=== PATIENT | female | born 1965 | race Caucasian/White ===

== ENCOUNTER → 2020-07-31 12:35 | Outpatient (BNVA) | payer OTHER, SELFPAY | PROVIDERS: PCP Internal Medicine; Visit Provider Physician Assistant | DX: E66.9 Obesity, unspecified (principal); G47.10 Hypersomnia, unspecified | CPT/HCPCS: 99202 ==

== ENCOUNTER 2020-08-01 07:05 | Outpatient (REF) | payer OTHER, SELFPAY ==
[2020-08-01 07:35] LABS: MANUAL DIFF FLAG NO
[2020-08-01 08:00] LABS: Alanine Aminotransferase 20 U/L (0-31); Alkaline Phosphatase 45 U/L (39-117); Anion Gap 10 (12-20); Aspartate Amino Transferase 21 U/L (5-31); Blood Urea Nitrogen 18 mg/dL (9-16); C Reactive Protein 0.61 mg/dL (< or = 0.50); Calcium 8.8 mg/dL (8.4-10.2); Carbon Dioxide 31 mmol/L (22-29); Chloride 105 mmol/L (96-108); Cholesterol 239 mg/dL; Estimated Glomerular Filt Rate > 60; Glucose Fasting 93 mg/dL (60-99); HDL Cholesterol 66 mg/dL; Iron 101 mcg/dL (30-160); LDL Cholesterol Calculated 161 mg/dl; Percent Iron Saturation 39 % (15-50); Potassium 4.5 mmol/L (3.3-5.1); Sodium 141 mmol/L (135-145); Total Iron Binding Capacity 260 mcg/dL (228-428); Total Protein 6.7 g/dL (6.5-8.0); Triglycerides 61 mg/dL; Unsaturated Iron Binding 159 ug/dL
[2020-08-01 08:05] LABS: Basophils Percent Auto 0.5 % (0-2); Eosinophils Absolute Auto 0.1 X10*3/uL (0.0-0.4); Eosinophils Percent Auto 2.3 % (0-4); Hematocrit 43.7 % (37-47); Hemoglobin 14.3 g/dl (12.0-16.0); Imm Gran Abs Auto 0.02 X10*3/uL (0.00-0.03); Imm Gran Pct Auto 0.4 % (0.0-0.4); Lymphocytes Absolute Auto 2.1 X10*3/uL (1.2-4.9); Mean Corpuscular HGB Conc 32.7 g/dl (31.0-35.0); Mean Corpuscular Hemoglobin 31.8 pg (27.0-33.0); Mean Corpuscular Volume 97.1 fL (80-98); Mean Platelet Volume 10.4 fL (9.4-12.3); Monocytes Absolute Auto 0.4 X10*3/uL (0.1-1.2); Monocytes Percent Auto 7.8 % (2-11); Neutrophils Absolute Auto 2.9 X10*3/uL (2.0-8.3); Platelet Count 266 X10*3/uL (160-400); Red Cell Distribution Width 12.9 % (11.0-16.0); White Blood Count 5.6 X10*3/uL (4.8-10.8)
[2020-08-01 08:06] LABS: Estimated Average Glucose 111 mg/dL; Hemoglobin A1c % 5.5 %
[2020-08-01 08:21] LABS: Ferritin 147 ng/mL (10-250); TSH reflex Free T4 0.53 uIU/mL (0.32-4.0); Vitamin D 25-OH Total 39.8 ng/mL (>30)
[2020-08-03 04:16] LABS: Folate 18.9 ng/mL (> or = 4.0); Vitamin B12 605 pg/mL (200-900)
[2020-08-03 21:56] LABS: Insulin Level Total 3.6 uIU/mL
[2020-08-04 09:52] LABS: PTHI 51 pg/mL (14-64)
[2020-08-05 11:21] LABS: Vitamin B1 24 nmol/L (8-30)
[2020-08-05 12:11] LABS: Zinc 64 mcg/dL (60-130)
[2020-08-06 18:16] LABS: Vitamin A 40 mcg/dL (38-98)
== END 2020-08-01 07:06 | disposition home or self-care (01) ==
LOC: HO.LAB 07:05
PROVIDERS: PCP Internal Medicine; Visit Provider Physician Assistant
DX: E66.01 Morbid (severe) obesity due to excess calories (principal)
CPT/HCPCS: 36415; 80053; 80061; 82306; 82607; 82728; 82746; 83036; 83525; 83540; 83970; 84425; 84443; 84590; 84630; 85025; 86140

== ENCOUNTER → 2020-08-25 13:46 | Outpatient (REF) | payer OTHER, SELFPAY | LOC: HO.SL 13:46 | PROVIDERS: PCP Internal Medicine; Visit Provider Physician Assistant | DX: G47.19 Other hypersomnia (principal) | CPT/HCPCS: 95806 ==

== ENCOUNTER → 2020-09-03 15:24 | Outpatient (BNVA) | payer OTHER, SELFPAY | PROVIDERS: PCP Internal Medicine; Referring Provider Internal Medicine; Visit Provider Physician Assistant | DX: E66.9 Obesity, unspecified (principal); G47.10 Hypersomnia, unspecified; R06.83 Snoring; Z68.37 Body mass index [BMI] 37.0-37.9, adult; Z90.710 Acquired absence of both cervix and uterus | CPT/HCPCS: 99212 ==

== ENCOUNTER → 2020-09-23 12:46 | Outpatient (BNVA) | payer OTHER, SELFPAY | PROVIDERS: PCP Internal Medicine; Referring Provider Internal Medicine; Visit Provider Dietitian, Registered | DX: E66.9 Obesity, unspecified (principal); Z68.37 Body mass index [BMI] 37.0-37.9, adult | CPT/HCPCS: 97802 ==

== ENCOUNTER → 2020-09-24 08:29 | Outpatient (BNVA) | payer OTHER, SELFPAY | PROVIDERS: PCP Internal Medicine; Visit Provider Surgery ==

== ENCOUNTER 2020-10-09 08:06 | Outpatient (REF) | payer OTHER, SELFPAY ==
--- NOTE | ~2020-10-09 | XR_ITS ---
EXAMINATION: XR CHEST CLINICAL INFORMATION: Obesity COMPARISON: None TECHNIQUE: 2 views of the chest were obtained. FINDINGS: No significant abnormality is noted involving the heart, lungs, mediastinum, bony thorax or soft tissues. Hardware in place for cervical spine surgery. XR/XR chest 2V IMPRESSION: No acute disease.
[2020-10-10 13:22] LABS: H Pylori Breath Test NOT DETECTED (NOT DETECTED)
== END 2020-10-09 08:07 | disposition home or self-care (01) ==
LOC: HO.XRAY 08:06
PROVIDERS: Physician Assistant; PCP Internal Medicine; Visit Provider Surgery
DX: E66.9 Obesity, unspecified (principal); Z68.37 Body mass index [BMI] 37.0-37.9, adult; G47.33 Obstructive sleep apnea (adult) (pediatric); Z79.899 Other long term (current) drug therapy
CPT/HCPCS: 71046; 83013; 99211

== ENCOUNTER 2020-10-12 07:10 | Outpatient (REF) | payer OTHER, SELFPAY ==
--- NOTE | ~2020-10-12 | FL_ITS ---
EXAMINATION: XR GI SERIES CLINICAL INFORMATION: Obesity. COMPARISON: None TECHNIQUE: Air contrast upper GI examination. FINDINGS: There is normal elevation of the soft palate while saying candy. There is normal apposition of the focal cords while saying E. Patient drank thin and thick barium and swallowed half-inch diameter barium tablet without difficulty. There is no evidence of nasopharyngeal reflux or tracheal aspiration. No cricopharyngeal hypertrophy. No Zenker's diverticulum. There is normal esophageal motility without evidence of persistent stricture or erosion. No significant hiatal hernia was identified. No gastroesophageal reflux was elicited including with water siphon test. There is normal distensibility of the stomach without evidence of ulceration or abnormal mass. There was no delay in gastric emptying. The duodenal bulb and sweep appeared unremarkable. FLUOROSCOPY TIME: 2.2 minutes. DOSE AREA PRODUCT: 22.059 Gy-cm2 (sandhu-centimeter squared). FL/FL upper GI series IMPRESSION: Normal air contrast upper GI examination.
--- NOTE | ~2020-10-12 | US_ITS ---
EXAMINATION: US COMPLETE ABDOMEN WITH LIVER ELASTOGRAPHY CLINICAL INFORMATION: Obesity COMPARISON: None. TECHNIQUE: Real-time imaging of the abdominal viscera. Noninvasive ultrasound liver fibrosis assessment is performed using Bayron ElastPQ point quantification shear wave elastography (pSWE) with a C5-2 MHz transducer. Multiple elastography samples are obtained. FINDINGS: PANCREAS: Normal. ABDOMINAL AORTA: The proximal, middle, and distal aortic segments are normal in caliber. INFERIOR VENA CAVA: Visualized portions are normal. LIVER: Liver echotexture is slightly increased. The liver is normal in size and contour. No focal lesion or intrahepatic biliary duct dilatation. The right lobe measures 14 cm in length. The left lobe measures 10 cm in length. Portal flow is normal. Hepatopedal. Shear wave liver elastography median stiffness is 1.7 m/s (reference: normal median stiffness is 1.3 m/s or less). IQR/median stiffness to assess sampling precision is 0.17 (reference: good quality data set is IQR/median stiffness of 0.15 or less). GALLBLADDER: There are gallstones in the gallbladder. The gallbladder is normal in size. The gallbladder wall is normal. COMMON BILE DUCT: Normal in caliber measuring 0.3 cm in diameter. RIGHT KIDNEY: Normal. No hydronephrosis. No renal calculi or focal parenchymal lesions. The kidney measures 10 cm in maximum dimension. LEFT KIDNEY: Normal. No hydronephrosis. No renal calculi or focal parenchymal lesions. The kidney measures 10 cm in maximum dimension. SPLEEN: Normal. The spleen measures 10 cm in maximum dimension. FREE FLUID: None. US/US abdomen comp w elastography IMPRESSION: 1. Impression: Slightly echogenic liver. Gallstones. 2. Liver elastography: Slightly limited due to sampling error. Does not rule out compensated advanced chronic liver disease. REFERENCE: Society of Radiologists in Ultrasound Liver Stiffness Thresholds (2020): LIVER STIFFNESS THRESHOLDS: *Liver Stiffness equal or less than 1.3 m/s: High probability of being normal. *Liver Stiffness less than 1.7 m/s: In the absence of other known clinical signs, rules out compensated advanced chronic liver disease. *Liver Stiffness 1.7-2.1 m/s: Suggestive of compensated advanced chronic liver disease but need further test for confirmation. *Liver Stiffness over 2.1 m/s: Rules in compensated advanced chronic liver disease. *Liver Stiffness over 2.4 m/s: Suggestive of clinically significant portal hypertension. QUALITY OF DATA SET: *IQR/Median value equal or less than 0.15 implies a quality data set. *IQR/Median value over 0.15 implies a poor quality data set. SIGNIFICANT CHANGE FROM PRIOR EXAM: Significant change if liver stiffness measurement is 10% or greater from prior exam. OTHER CONSIDERATIONS: The stage of liver fibrosis may be overestimated in the setting of acute hepatitis, liver inflammation, elevated liver function tests, hepatic vascular congestion, obstructive cholestasis, non-fasting state, and infiltrative diseases such as amyloidosis and lymphoma. In some patients with NAFLD, the liver stiffness thresholds for compensated advanced chronic liver disease may be lower. In causes other than viral hepatitis and NAFLD, liver stiffness thresholds are not well established.
--- NOTE | 2020-10-12 07:17 | ECG_ITS ---
Test Reason : E66.9 Blood Pressure : / mmHG Vent. Rate : 052 BPM Atrial Rate : 052 BPM P-R Int : 166 ms QRS Dur : 084 ms QT Int : 454 ms P-R-T Axes : 049 064 039 degrees QTc Int : 422 ms Sinus bradycardia Otherwise normal ECG No previous ECGs available Referred By: Estephania Hensley Electronically Signed By:MELISSA DUMONT
== END 2020-10-12 07:11 | disposition home or self-care (01) ==
LOC: HO.US 07:10
PROVIDERS: PCP Internal Medicine; Visit Provider Surgery
DX: Z01.818 Encounter for other preprocedural examination (principal); E66.9 Obesity, unspecified; K21.9 Gastro-esophageal reflux disease without esophagitis; R00.1 Bradycardia, unspecified; R06.02 Shortness of breath; G47.33 Obstructive sleep apnea (adult) (pediatric); Z68.37 Body mass index [BMI] 37.0-37.9, adult
CPT/HCPCS: 74240; 76705; 76981; 93005

== ENCOUNTER → 2020-11-11 08:02 | Outpatient (BNVA) | payer OTHER, SELFPAY | PROVIDERS: PCP Internal Medicine; Visit Provider Surgery ==

== ENCOUNTER → 2020-11-24 12:11 | Day surgery (SDC) | payer OTHER, SELFPAY ==
[2020-11-12 14:40] LABS: MANUAL DIFF FLAG NO
[2020-11-12 14:46] LABS: Basophils Percent Auto 0.3 % (0-2); Eosinophils Absolute Auto 0.1 X10*3/uL (0.0-0.4); Eosinophils Percent Auto 0.8 % (0-4); Hematocrit 41.4 % (37-47); Hemoglobin 13.6 g/dl (12.0-16.0); Imm Gran Abs Auto 0.03 X10*3/uL (0.00-0.03); Imm Gran Pct Auto 0.4 % (0.0-0.4); Lymphocytes Absolute Auto 2.4 X10*3/uL (1.2-4.9); Lymphocytes Percent Auto 30.5 % (20-40); Mean Corpuscular HGB Conc 32.9 g/dl (31.0-35.0); Mean Corpuscular Hemoglobin 31.9 pg (27.0-33.0); Mean Corpuscular Volume 97.2 fL (80-98); Mean Platelet Volume 10.3 fL (9.4-12.3); Monocytes Absolute Auto 0.6 X10*3/uL (0.1-1.2); Monocytes Percent Auto 7.1 % (2-11); Neutrophils Absolute Auto 4.8 X10*3/uL (2.0-8.3); Neutrophils Percent Auto 60.9 % (45-73); Platelet Count 294 X10*3/uL (160-400); Red Blood Count 4.26 X10*6/uL (4.20-5.50); Red Cell Distribution Width 12.4 % (11.0-16.0); White Blood Count 7.9 X10*3/uL (4.8-10.8)
[2020-11-12 14:51] LABS: Prothrombin Time 11.1 SEC (9.9-13.0)
[2020-11-12 14:53] LABS: Partial Thromboplastin Time 35.3 SEC (24.1-38.0)
[2020-11-12 15:09] LABS: Alanine Aminotransferase 17 U/L (0-31); Albumin Level 4.3 g/dL (3.5-5.0); Alkaline Phosphatase 45 U/L (39-117); Anion Gap 12 (12-20); Aspartate Amino Transferase 21 U/L (5-31); Bilirubin Total 0.8 mg/dL (0.0-1.0); Blood Urea Nitrogen 18 mg/dL (9-16); Calcium 9.5 mg/dL (8.4-10.2); Carbon Dioxide 28 mmol/L (22-29); Chloride 106 mmol/L (96-108); Estimated Glomerular Filt Rate > 60; Glucose Random 98 mg/dL (60-115); Potassium 4.9 mmol/L (3.3-5.1); Sodium 141 mmol/L (135-145); Total Protein 6.9 g/dL (6.5-8.0)
--- NOTE | 2020-11-23 10:20 | P.CONAN_ITS ---
Documented by User: Kenyetta Thomasney 11/23/20 10:21 HPI - Anesthesia Eval Consult details Narrative: 55yo F for Cholecystectomy Laparoscopic PMFSH Active Problems Active Problems: All Active Problems (Updated 11/11/20 @ 15:18 by Dwayne Angelo MD) BMI over 35 (Acute) Cholelithiasis (Acute) GERD (gastroesophageal reflux disease) (Acute) Depression (Acute) Genital herpes (Acute) Sleep apnea with use of continuous positive airway pressure (CPAP) (Acute) Obesity, Class II, BMI 35-39.9 (Acute) BMI 37.0-37.9, adult (Acute) SADIA (obstructive sleep apnea) (Acute) MDD (major depressive disorder), recurrent episode, moderate (Acute) Snoring (Acute) Hypersomnolence (Acute) Osteoarthritis (Acute) Past Medical History Medical History BMI 37.0-37.9, adult Depression Genital herpes GERD (gastroesophageal reflux disease) Hypersomnolence Obesity, Class II, BMI 35-39.9 SADIA (obstructive sleep apnea) Osteoarthritis Sleep apnea with use of continuous positive airway pressure (CPAP) Snoring Family History Family History Mother No problems noted. Father Heart disease Hearing loss Parkinson disease Sister No problems noted. Sister No problems noted. Sister No problems noted. Brother No problems noted. Brother No problems noted. Brother Heart disease Arthritis Surgical History Surgical History History of bunionectomy History of partial hysterectomy History of surgery on arm Hx of appendectomy Hx of breast surgery Hx of spinal surgery Social History Social History Alcohol intake: current Alcohol intake frequency: holidays/special occasions only Patient Tobacco Use Status: Never used Tobacco Use of substances other than those prescribed or required for medical reasons: No Are you DNR?: No Advance Directives: No Advance Directives Information Provided: Yes Meds Allergies Allergy/AdvReac Type Severity Reaction Status Date / Time Seasonal Allergies Allergy Severe Anaphylaxis Verified 11/11/20 15:07 clarithromycin [From Biaxin] Allergy nausea Verified 11/11/20 15:07 Home Medications Medication Instructions Recorded Confirmed Last Taken Type duloxetine 20 mg capsule,delayed 20 mg PO DAILY 07/31/20 11/11/20 Unknown History release multivitamin 1 tab PO DAILY 07/31/20 11/11/20 Unknown History valacyclovir 500 mg tablet 500 mg PO DAILY 07/31/20 11/11/20 Unknown History Exam Exam Date and Time: November 23, 2020 1020 Pertinent Lab Results Pertinent Lab Results: Laboratory Tests 11/12/20 11/12/20 11/12/20 14:30 14:30 14:30 WBC 7.9 RBC 4.26 Hgb 13.6 Hct 41.4 MCV 97.2 MCH 31.9 MCHC 32.9 RDW 12.4 Plt Count 294 MPV 10.3 Immature Gran % (Auto) 0.4 Neut % (Auto) 60.9 Lymph % (Auto) 30.5 [place] % (Auto) 7.1 Eos % (Auto) 0.8 Baso % (Auto) 0.3 Lymph # (Auto) 2.4 [place] # (Auto) 0.6 Eos # (Auto) 0.1 Baso # (Auto) 0.0 Abs Immat Gran (auto) 0.03 Absolute Neuts (auto) 4.8 Absolute Nucleated RBC 0.000 Nucleated RBC % (auto) 0.0 PT 11.1 INR 1.0 APTT 35.3 Sodium 141 Potassium 4.9 Chloride 106 Carbon Dioxide 28 Anion Gap 12 BUN 18 H Creatinine 0.87 Estim Creat Clear Calc TNP Estimated GFR > 60 Random Glucose 98 Calcium 9.5 D Total Bilirubin 0.8 AST 21 ALT 17 Alkaline Phosphatase 45 Total Protein 6.9 Albumin 4.3 Blood Type Antibody Screen 11/12/20 14:30 WBC RBC Hgb Hct MCV MCH MCHC RDW Plt Count MPV Immature Gran % (Auto) Neut % (Auto) Lymph % (Auto) [place] % (Auto) Eos % (Auto) Baso % (Auto) Lymph # (Auto) [place] # (Auto) Eos # (Auto) Baso # (Auto) Abs Immat Gran (auto) Absolute Neuts (auto) Absolute Nucleated RBC Nucleated RBC % (auto) PT INR APTT Sodium Potassium Chloride Carbon Dioxide Anion Gap BUN Creatinine Estim Creat Clear Calc Estimated GFR Random Glucose Calcium Total Bilirubin AST ALT Alkaline Phosphatase Total Protein Albumin Blood Type A Positive Antibody Screen NEGATIVE Narrative Narrative: EKG 09/2020 Vent. Rate : 052 BPM Atrial Rate : 052 BPM P-R Int : 166 ms QRS Dur : 084 ms QT Int : 454 ms P-R-T Axes : 049 064 039 degrees QTc Int : 422 ms Sinus bradycardia Otherwise normal ECG No previous ECGs available Assessment and Plan Assessment Anesthesia Assessment: Chart Reviewed Documented by User: Silvio Perla MD 11/24/20 14:40 [facility] Past Medical History Medical History BMI 37.0-37.9, adult Depression Genital herpes GERD (gastroesophageal reflux disease) Hypersomnolence Obesity, Class II, BMI 35-39.9 SADIA (obstructive sleep apnea) Osteoarthritis Sleep apnea with use of continuous positive airway pressure (CPAP) Snoring Family History Family History Mother No problems noted. Father Heart disease Hearing loss Parkinson disease Sister No problems noted. Sister No problems noted. Sister No problems noted. Brother No problems noted. Brother No problems noted. Brother Heart disease Arthritis Surgical History Surgical History History of bunionectomy History of partial hysterectomy History of surgery on arm Hx of appendectomy Hx of breast surgery Hx of spinal surgery Social History Social History Alcohol intake: current Alcohol intake frequency: holidays/special occasions only Patient Tobacco Use Status: Never used Tobacco Use of substances other than those prescribed or required for medical reasons: No Are you DNR?: No Advance Directives: No Advance Directives Information Provided: Yes Meds Allergies Allergy/AdvReac Type Severity Reaction Status Date / Time Seasonal Allergies Allergy Severe Anaphylaxis Verified 11/11/20 15:07 clarithromycin [From Biaxin] Allergy nausea Verified 11/11/20 15:07 Home Medications Medication Instructions Recorded Confirmed Last Taken Type duloxetine 20 mg capsule,delayed 20 mg PO DAILY 07/31/20 11/11/20 Unknown History release multivitamin 1 tab PO DAILY 07/31/20 11/11/20 Unknown History valacyclovir 500 mg tablet 500 mg PO DAILY 07/31/20 11/11/20 Unknown History Assessment and Plan Assessment Anesthesia Assessment: Anesthesia Plan Discussed and Chart Reviewed Final Anesthetic Review NPO: Yes ASA Class: II Final Preanesthetic Review: No Changes in Pt Med Stat, Meds/Allgs Chart Reviewed, Consent Obtained/Reviewed and Anes Risks/Benef Reviewed Patient Risk: Intermediate Procedure Risk: Low Anesthetic Plan Anesthetic Plan: GA Disposition: Standard PACU
--- NOTE | 2020-11-23 19:16 | MHC.SHP ---
Pre-Procedural Eval Section A Date of Service: 11/23/20 The patient is an INPATIENT: No The History & Physical has been completed within 30 days and I have reviewed it.: Yes Section B Chief Complaint: Cholecystitis Details of Present Illness: Cholecystitis Relevant Family History (Specify if Yes): No Relevant Social History: None Present Medications: see Short Stay Collaborative assessment Medical History: No relevant PMH History of Previous Operations: No relevant previous surgery Allergies: Allergies Allergy/AdvReac Type Severity Reaction Status Date / Time Seasonal Allergies Allergy Severe Anaphylaxis Verified 11/11/20 15:07 clarithromycin [From Biaxin] Allergy nausea Verified 11/11/20 15:07 Review of Systems Sugical H&P ROS: Negative: Constitution, Cardiovascular, Respiratory, Neurological, Psychiatric, Hem-Onc, Allergic/Immunologic, Gastrointestinal, Genitourinary, Musculoskeletal, Integumentary, Endocrine and Eyes/Ears/Nose/Throat Exam Surgical H&P Exam: Normal: HEENT, Normal: Heart, Normal: Lungs, Normal: Extremities, Normal: Abdomen, Normal: Skin and Normal: Neurological Plan Diagnosis/Plan: Unchanged (Symptomatic cholelithiasis. Patient is need for cholecystectomy) I have reviewed the history and physical and performed a pertinent physical examination on my patient. No changes have occurred unless specified.
[2020-11-24] VITALS (14 sets, daily range): BP systolic 115–140; BP diastolic 55–82; PULSE 66–85; RESP 14–20; TEMP 36.3–36.7; O2SAT 93–100; BMI 34.7
[2020-11-24 12:46] LABS: COVID-19 Test Negative (Negative); IDNOW Serial# 9DD0AD1C
[2020-11-24] MEDS: Lactated Ringers 1,000 ML 100 ML IVCONT (12:47)
--- NOTE | 2020-11-24 14:48 | PM.OP ---
Brief Operative Note Date of Service: 11/24/20 Pre-op diagnosis: Symptomatic cholelithiasis, obesity and comorbidities (see below) Post-op diagnosis: same Procedure: PROCEDURE DATE: 11/24/2020 PREOPERATIVE DIAGNOSIS: Symptomatic cholelithiasis, morbid obesity with a body mass index of 37.9kg/sq. meters and comorbidities including sleep apnea, GERD, DJD, liver steatosis, liver fibrosis, acne POSTOPERATIVE DIAGNOSIS: Same as above. PROCEDURE: Laparoscopic cholecystectomy Surgeon: Benji Angelo M.D., Ph.D. Java Developer Consultant: Judy Darby PA-C Anesthesia: General endotracheal anesthesia Estimated blood loss: Minimal FINDINGS AND PROCEDURE: OPERATIVE INDICATIONS: The patient is a 55 year old female known to me who was initially seen in my office for evaluation for refractory morbid obesity. During the preoperative workup, the patient was found to have cholelithiasis which appears to be symptomatic. I recommended cholecystectomy. Risks and complications of the surgery were discussed with the patient in advance, particularly the postoperative bleeding, infection, DVT or PE, bile leak, major bile duct injury that may require additional surgical intervention, cardiac, pulmonary or renal complications among others. The patient understood the risks and was in agreement with the plan. PROCEDURE: After informed consent was obtained by the patient, the patient was transferred to the Operating Room and was placed in the supine position. The patient was given preoperative antibiotics and after successful induction of general anesthesia, pneumatic compression devices were placed. The patient was then prepped and draped in the usual sterile manner and abdominal access was established with the Darrian technique. The abdomen was insufflated with C02 to a pressure of 15 mmHg. A 5 mm Versi-step port was placed, slightly to the right and superior from the umbilicus. The 5 mm camera was introduced. We inspected the area where the port had been placed and there was no injury. The patient was then placed initially in a steep reverse Trendelenburg position and three additional ports were placed, specifically a 12 mm Versi-step port just to the right of the midline below the xiphoid process and two 5 mm Versi-step ports at the right upper quadrant and right flank. At that point the patient was placed in a steep reverse Trendelenburg position tilted to the left side. The gallbladder was retracted cephalad and laterally. There were adhesions between the omentum and the gallbladder wall that were taken down. The peritoneal attachments of the gallbladder at the triangle of Calot posteriorly and anteriorly were taken down. The cystic duct and artery were both seen. They were completely dissected free, skeletonized all the way to the infundibulum of the gallbladder . In a similar fashion we also cleaned the liver bed just behind the cystic artery to make sure there was no additional structures in this area. Once we confirmed that both structures were entering into the gallbladder and there were no other structures in the area, they were both clipped with two clips proximally, one distally and were cut in- between. We then using the electrocautery we slowly took down the gallbladder from the liver bed. Small areas of bleeding from the liver parenchyma were controlled with the cautery. After the gallbladder was completely detached from the liver bed, it was placed in an EndoCatch bag and was removed without difficulty from the xiphoid port. We then inspected the clips at the cystic duct and artery and were both in place. There was no active bleeding from the liver bed. I thoroughly suctioned the right upper quadrant and we removed all fluid until clear. At that point the patient was placed in supine position, I deflated the abdomen and we removed all ports under direct vision and no bleeding was noted from any of the port sites. The fascia of the 12 mm port was closed using a #1 Polysorb suture. 60cc 0.25% Marcaine and 10% Dexamethasone plain were used to infiltrate the fascial closure as well as all skin incisions. The wounds were irrigated with saline mixed with antibiotic solution and then the skin was closed with 4-0 Maxon subcuticular sutures antibiotic-coated. Steri-strips and OpSites were used to cover all incisions. The patient extubated and was transferred in stable condition to the Recovery Room for further care. I was present and performed all steps of the procedure. Constantino Darby was the first coat sander. There were no residents to assist with this case. Benji Angelo M.D., Ph.D., F.A.C.S. Surgeon: Dwayne Angelo MD Anesthesia: GETA, local and other (TAP block) Was an Java Developer Consultant used for this Procedure?: No Java Developer Consultant: Judy Darby Estimated blood loss (mL): 5 Urine output (mL): 0 (No [place] to record) Pathology: other (Gallbladder) Condition: stable Disposition: PACU
[2020-11-24] MEDS: HYDROmorphone HCl 0.5 MG/0.5 ML SYRINGE 0.25 MG IVPUSH ×4 (16:53→17:44)
[2020-11-24] MEDS: oxyCODONE HCl Immed Release 5 MG TABLET PO (16:53)
== END ==
PROVIDERS: PCP Internal Medicine; Visit Provider Surgery
PROC: 0FT44ZZ Resection of Gallbladder, Percutaneous Endoscopic Approach (ICD-10-PCS; CPT 47562; principal; 2020-11-24 15:30)
DX: K80.10 Calculus of gallbladder with chronic cholecystitis without obstruction (principal); K82.8 Other specified diseases of gallbladder; K74.00 Hepatic fibrosis, unspecified; K21.9 Gastro-esophageal reflux disease without esophagitis; K76.0 Fatty (change of) liver, not elsewhere classified; G47.33 Obstructive sleep apnea (adult) (pediatric); E66.01 Morbid (severe) obesity due to excess calories; Z68.37 Body mass index [BMI] 37.0-37.9, adult; Z79.899 Other long term (current) drug therapy; Z88.1 Allergy status to other antibiotic agents
CPT/HCPCS: 47562; 36415; 80053; 85025; 85610; 85730; 86850; 86900; 86901; 87635; 88304; J0131; J0690; J1100; J1170; J2250; J2405; J3010

== ENCOUNTER → 2020-12-25 07:14 | Outpatient (BNVA) | payer OTHER, SELFPAY | PROVIDERS: PCP Internal Medicine; Visit Provider Surgery ==

== ENCOUNTER → 2021-01-05 15:52 | Outpatient (BNVA) | payer OTHER, SELFPAY | PROVIDERS: PCP Internal Medicine; Visit Provider Surgery | DX: Z01.818 Encounter for other preprocedural examination (principal); E66.9 Obesity, unspecified; K21.9 Gastro-esophageal reflux disease without esophagitis; G47.33 Obstructive sleep apnea (adult) (pediatric); R11.0 Nausea; Z68.35 Body mass index [BMI] 35.0-35.9, adult; Z88.1 Allergy status to other antibiotic agents; Z91.09 Other allergy status, other than to drugs and biological substances; Z99.89 Dependence on other enabling machines and devices; Z79.899 Other long term (current) drug therapy | CPT/HCPCS: 99212 ==

== ENCOUNTER 2021-01-07 07:34 | Inpatient (IN) | payer OTHER, SELFPAY ==
[2021-01-06 06:54] LABS: MANUAL DIFF FLAG NO
[2021-01-06 06:59] LABS: Basophils Percent Auto 0.3 % (0-2); Eosinophils Absolute Auto 0.2 X10*3/uL (0.0-0.4); Eosinophils Percent Auto 3.6 % (0-4); Hematocrit 42.8 % (37-47); Hemoglobin 14.1 g/dl (12.0-16.0); Imm Gran Abs Auto 0.01 X10*3/uL (0.00-0.03); Imm Gran Pct Auto 0.2 % (0.0-0.4); Lymphocytes Absolute Auto 2.4 X10*3/uL (1.2-4.9); Lymphocytes Percent Auto 40.8 % (20-40); Mean Corpuscular HGB Conc 32.9 g/dl (31.0-35.0); Mean Corpuscular Volume 97.1 fL (80-98); Mean Platelet Volume 10.3 fL (9.4-12.3); Monocytes Absolute Auto 0.5 X10*3/uL (0.1-1.2); Monocytes Percent Auto 8.1 % (2-11); Neutrophils Absolute Auto 2.7 X10*3/uL (2.0-8.3); Platelet Count 292 X10*3/uL (160-400); Red Blood Count 4.41 X10*6/uL (4.20-5.50); Red Cell Distribution Width 12.9 % (11.0-16.0); White Blood Count 5.8 X10*3/uL (4.8-10.8)
[2021-01-06 07:15] LABS: Alanine Aminotransferase 20 U/L (0-31); Albumin Level 4.3 g/dL (3.5-5.0); Alkaline Phosphatase 40 U/L (39-117); Anion Gap 10 (12-20); Aspartate Amino Transferase 22 U/L (5-31); Bilirubin Total 1.3 mg/dL (0.0-1.0); Blood Urea Nitrogen 17 mg/dL (9-16); C Reactive Protein 0.35 mg/dL (< or = 0.50); Calcium 9.7 mg/dL (8.4-10.2); Carbon Dioxide 31 mmol/L (22-29); Chloride 106 mmol/L (96-108); Cholesterol 248 mg/dL; Estimated Glomerular Filt Rate > 60; Glucose Random 86 mg/dL (60-115); HDL Cholesterol 71 mg/dL; LDL Cholesterol Calculated 152 mg/dl; Sodium 142 mmol/L (135-145); Triglycerides 128 mg/dL
[2021-01-06 07:16] LABS: INTERNATIONAL NORM RATIO 0.9 (0.9-1.1); Prothrombin Time 10.7 SEC (9.9-13.0)
[2021-01-06 07:19] LABS: Partial Thromboplastin Time 31.2 SEC (24.1-38.0)
[2021-01-06 07:38] LABS: TSH reflex Free T4 1.29 uIU/mL (0.32-4.0)
[2021-01-06 07:48] LABS: Estimated Average Glucose 105 mg/dL; Hemoglobin A1c % 5.3 %
--- NOTE | 2021-01-06 08:43 | HO.ANESPROP2 ---
Documented by User: Kenyetta Gonzalez NP 01/06/21 08:44 HPI - Anesthesia Eval Consult details Narrative: 55yo F for Gastrectomy Sleeve,EGD,possible diaphragmatic hernia,possible ventral hernia,possible open PMFSH Active Problems Active Problems: All Active Problems (Updated 01/05/21 @ 16:24 by Dwayne Angelo MD) Obesity (Acute) Diarrhea (Acute) BMI over 35 (Acute) Cholelithiasis (Acute) GERD (gastroesophageal reflux disease) (Acute) Depression (Acute) Genital herpes (Acute) Sleep apnea with use of continuous positive airway pressure (CPAP) (Acute) Obesity, Class II, BMI 35-39.9 (Acute) BMI 37.0-37.9, adult (Acute) SADIA (obstructive sleep apnea) (Acute) MDD (major depressive disorder), recurrent episode, moderate (Acute) Snoring (Acute) Hypersomnolence (Acute) Osteoarthritis (Acute) Past Medical History Medical History BMI 37.0-37.9, adult Cholecystectomy planned Depression Genital herpes GERD (gastroesophageal reflux disease) Hypersomnolence Obesity, Class II, BMI 35-39.9 SADIA (obstructive sleep apnea) Osteoarthritis Sleep apnea with use of continuous positive airway pressure (CPAP) Snoring Family History Family History Mother No problems noted. Father Heart disease Hearing loss Parkinson disease Sister No problems noted. Sister No problems noted. Sister No problems noted. Brother No problems noted. Brother No problems noted. Brother Heart disease Arthritis Surgical History Surgical History History of bunionectomy History of partial hysterectomy History of surgery on arm Hx of appendectomy Hx of breast surgery Hx of spinal surgery Social History Social History Alcohol intake: current Alcohol intake frequency: holidays/special occasions only Patient Tobacco Use Status: Former Tobacco user Tobacco use type: Cigarette Use of substances other than those prescribed or required for medical reasons: No Are you DNR?: No Advance Directives: No Advance Directives Information Provided: No Recently lost weight without trying: No Nutrition Risks: No Nutritional Risk Patient : No Meds Allergies Allergy/AdvReac Type Severity Reaction Status Date / Time Seasonal Allergies Allergy Severe Anaphylaxis Verified 01/05/21 16:31 clarithromycin [From Biaxin] Allergy nausea Verified 01/05/21 16:31 Home Medications Medication Instructions Recorded Confirmed Last Taken Type duloxetine 20 mg capsule,delayed 20 mg PO DAILY 07/31/20 01/05/21 Unknown History release multivitamin 1 tab PO DAILY 07/31/20 01/05/21 Unknown History valacyclovir 500 mg tablet 500 mg PO DAILY 07/31/20 01/05/21 Unknown History Exam Exam Date and Time: January 06, [id number] Pertinent Lab Results Pertinent Lab Results: Laboratory Tests 01/06/21 01/06/21 01/06/21 06:10 06:10 06:10 WBC 5.8 RBC 4.41 Hgb 14.1 Hct 42.8 MCV 97.1 MCH 32.0 MCHC 32.9 RDW 12.9 Plt Count 292 MPV 10.3 Immature Gran % (Auto) 0.2 Neut % (Auto) 47.0 Lymph % (Auto) 40.8 H [place] % (Auto) 8.1 Eos % (Auto) 3.6 Baso % (Auto) 0.3 Lymph # (Auto) 2.4 [place] # (Auto) 0.5 Eos # (Auto) 0.2 Baso # (Auto) 0.0 Abs Immat Gran (auto) 0.01 Absolute Neuts (auto) 2.7 Absolute Nucleated RBC 0.000 Nucleated RBC % (auto) 0.0 PT 10.7 INR 0.9 APTT 31.2 Sodium 142 Potassium 5.0 Chloride 106 Carbon Dioxide 31 H Anion Gap 10 L BUN 17 H Creatinine 0.96 Estim Creat Clear Calc TNP Estimated GFR > 60 Random Glucose 86 Estimat Average Glucose Hemoglobin A1c % Calcium 9.7 Total Bilirubin 1.3 H AST 22 ALT 20 Alkaline Phosphatase 40 C-Reactive Protein 0.35 Total Protein 7.0 Albumin 4.3 Triglycerides 128 Cholesterol 248 LDL Cholesterol, Calc 152 HDL Cholesterol 71 TSH 1.29 01/06/21 06:10 WBC RBC Hgb Hct MCV MCH MCHC RDW Plt Count MPV Immature Gran % (Auto) Neut % (Auto) Lymph % (Auto) [place] % (Auto) Eos % (Auto) Baso % (Auto) Lymph # (Auto) [place] # (Auto) Eos # (Auto) Baso # (Auto) Abs Immat Gran (auto) Absolute Neuts (auto) Absolute Nucleated RBC Nucleated RBC % (auto) PT INR APTT Sodium Potassium Chloride Carbon Dioxide Anion Gap BUN Creatinine Estim Creat Clear Calc Estimated GFR Random Glucose Estimat Average Glucose 105 Hemoglobin A1c % 5.3 Calcium Total Bilirubin AST ALT Alkaline Phosphatase C-Reactive Protein Total Protein Albumin Triglycerides Cholesterol LDL Cholesterol, Calc HDL Cholesterol TSH Narrative Narrative: EKG 09/2020 Vent. Rate : 052 BPM ? ? Atrial Rate : 052 BPM ?? P-R Int : 166 ms? QRS Dur : 084 ms ? ? QT Int : 454 ms ? ? ? P-R-T Axes : 049 064 039 degrees ?? QTc Int : 422 ms ? Sinus bradycardia Otherwise normal ECG No previous ECGs available Assessment and Plan Assessment Anesthesia Assessment: Chart Reviewed Documented by User: Sofiya Cazares MD 01/07/21 09:24 [facility] Past Medical History Medical History BMI 37.0-37.9, adult Cholecystectomy planned Depression Genital herpes GERD (gastroesophageal reflux disease) Hypersomnolence Obesity, Class II, BMI 35-39.9 SADIA (obstructive sleep apnea) Osteoarthritis Sleep apnea with use of continuous positive airway pressure (CPAP) Snoring Family History Family History Mother No problems noted. Father Heart disease Hearing loss Parkinson disease Sister No problems noted. Sister No problems noted. Sister No problems noted. Brother No problems noted. Brother No problems noted. Brother Heart disease Arthritis Surgical History Surgical History History of bunionectomy History of partial hysterectomy History of surgery on arm Hx of appendectomy Hx of breast surgery Hx of spinal surgery History of Problems with Anesthesia: No Social History Social History Alcohol intake: current Alcohol intake frequency: holidays/special occasions only Patient Tobacco Use Status: Former Tobacco user Tobacco use type: Cigarette Use of substances other than those prescribed or required for medical reasons: No Are you DNR?: No Advance Directives: No Advance Directives Information Provided: No Recently lost weight without trying: No Nutrition Risks: No Nutritional Risk Patient : No Meds Allergies Allergy/AdvReac Type Severity Reaction Status Date / Time Seasonal Allergies Allergy Severe Anaphylaxis Verified 01/05/21 16:31 clarithromycin [From Biaxin] Allergy nausea Verified 01/05/21 16:31 Home Medications Medication Instructions Recorded Confirmed Last Taken Type duloxetine 20 mg capsule,delayed 20 mg PO DAILY 07/31/20 01/05/21 Unknown History release multivitamin 1 tab PO DAILY 07/31/20 01/05/21 Unknown History valacyclovir 500 mg tablet 500 mg PO DAILY 07/31/20 01/05/21 Unknown History Exam Airway Mallampati Class: II TM Dist: >3cm Neck ROM: Full Loose/Missing/Broken Teeth: No Heart: RRR Lungs: CTA Assessment and Plan Final Anesthetic Review History of Problems with Anesthesia: No NPO: Yes ASA Class: III Final Preanesthetic Review: Meds/Allgs Chart Reviewed, Consent Obtained/Reviewed and Anes Risks/Benef Reviewed Patient Risk: Low Procedure Risk: Intermediate Anesthetic Plan Anesthetic Plan: GA Disposition: Standard PACU
--- NOTE | 2021-01-06 22:27 | MHC.SHP ---
Pre-Procedural Eval Section A Date of Service: 01/06/21 The patient is an INPATIENT: Yes The History & Physical has been completed within 30 days and I have reviewed it.: No Section B Chief Complaint: obesity Relevant Family History (Specify if Yes): No Relevant Social History: None Present Medications: see Short Stay Collaborative assessment Medical History: No relevant PMH History of Previous Operations: No relevant previous surgery Allergies: Allergies Allergy/AdvReac Type Severity Reaction Status Date / Time Seasonal Allergies Allergy Severe Anaphylaxis Verified 01/05/21 16:31 clarithromycin [From Biaxin] Allergy nausea Verified 01/05/21 16:31 Review of Systems Sugical H&P ROS: Negative: Constitution, Cardiovascular, Respiratory, Neurological, Psychiatric, Hem-Onc, Allergic/Immunologic, Gastrointestinal, Genitourinary, Musculoskeletal, Integumentary, Endocrine and Eyes/Ears/Nose/Throat Exam Surgical H&P Exam: Normal: HEENT, Normal: Heart, Normal: Lungs, Normal: Extremities, Normal: Abdomen, Normal: Skin and Normal: Neurological Plan Diagnosis/Plan: Unchanged I have reviewed the history and physical and performed a pertinent physical examination on my patient. No changes have occurred unless specified.
[2021-01-07] VITALS (11 sets, daily range): BP systolic 102–159; BP diastolic 60–79; PULSE 50–85; RESP 12–18; TEMP 35.9–36.8; O2SAT 98–100; BMI 34.5
[2021-01-07 08:35] LABS: COVID-19 Test Negative (Negative)
[2021-01-07] MEDS: Lactated Ringers 1,000 ML 999 ML IV (08:45)
[2021-01-07] MEDS: Lactated Ringers 1,000 ML 100 ML IVCONT (08:45)
[2021-01-07] MEDS: ceFAZolin Sodium/Dextrose,Iso 2 GM/50 ML PIGGYBACK IV ×2 (10:40→16:32)
--- NOTE | 2021-01-07 12:48 | PM.OP ---
Brief Operative Note Date of Service: 01/07/21 Pre-op diagnosis: Severe obesity with comorbidities (see below) Post-op diagnosis: same Procedure: INITIAL PATIENT BMI ON PRESENTATION AT OUR OFFICE: 37.9 kg/m2 LAST BMI BEFORE SURGERY: 35.3 kg/m2 COMORBIDITIES: sleep apnea on CPAP, GERD, Depression, genital herpes, DJD, acne, liver steatosis, liver fibrosis The patient participated in an intensive weekly lifestyle ?intervention and exercise program during which the patient ?has lost between the initial office visit and the last preoperative visit 16.8 lbs, or 7.61% of initial actual body weight. The patient met the BMI-criteria for bariatric surgery based on the BMI on initial presentation. The patient should not be penalized for achieving such weight loss because ?it is not sustainable long-term without surgical intervention and it was achieved in preparation for bariatric surgery ?under my direction and based on my published research ([email or web address]) ?that a 10% preoperative weight loss improves long-term weight loss after surgery and reduces perioperative complications.? Insurance carriers such as [facility] have endorsed my recommendations ?and have included in their policies criteria to include a 10% preoperative weight loss requirement. PROCEDURE: Esophago-gastroscopy, laparoscopic repair of incarcerated diaphragmatic hernia, laparoscopic lysis of adhesions, laparoscopic sleeve gastrectomy and laparoscopic gastropexy INDICATIONS: This is a 50 year-old female who was electively scheduled for laparoscopic, possibly open sleeve gastrectomy. The risks and complications of the procedure were discussed with the patient in advance, particularly the possibility of ; pulmonary embolism; staple line leak; bleeding; GERD; cardiac, pulmonary, or renal complications; as well as long-term problems such as insufficient weight loss, vitamin deficiency, strictures, or ulcers. The patient understood all the risks, and was in agreement to proceed with surgery. DESCRIPTION OF PROCEDURE: After informed consent was obtained from the patient, the patient was given preoperative antibiotics, and was transferred to the operating room. After successful induction of general anesthesia, pneumatic compressive devices were placed on both lower extremities. An upper endoscopy was performed next. The oropharynx and esophagus appeared to be within normal limits. There was no diaphragmatic hernia present consistent with the findings of the preoperative upper GI. The stomach was entered. Then after all fluid and air were suctioned and the stomach was fully decompressed, the scope was withdrawn and secured in the mid esophagus. The patient was then prepped and draped in the usual sterile manner, and abdominal access was established at the right upper quadrant with the Darrian technique. A 12 mm blunt port was inserted, and the abdomen was insufflated with CO2 to a pressure of 15 mmHg. Under direct visualization, additional ports were placed, specifically two 5 mm Versi-step ports to the left upper quadrant, and a 5 mm Versi-Step port to the right upper quadrant. 1% lidocaine plain was used to infiltrate all port sites as well as all fascia defects. Following that, the patient was placed in a steep reverse Trendelenburg position. An additional 5 mm port was placed to the right flank for the Mediflex retractor that was used to retract the left lobe of the liver. The gastro-esophageal fat pad was opened with the ultrasonic device (Thunderbeat, Olympus) and the anterior esophagus and hiatus were exposed. The angle of His was opened with the ultrasonic device the fundus of the stomach from any diaphragmatic and splenic attachments. I then opened the gastrocolic ligament between the transverse colon and the greater curvature of the stomach with the ultrasonic device to enter the lesser sac and facilitate the ligation of the short gastric vessels. I started at a mid-point along the greater curvature and using the Thunderbeat, all short gastric vessels were divided all the way to the angle of His until the left martin was completely dissected at its entirety. I then divided the gastro-colic ligament distally to a distance of about 3-4 cm proximal to the esophagus. The stomach was then divided transversely with one Endo WILMER-45 purple and four WILMER-60 articulating orange loads using the AEON stapler and loads. Every effort was made that the gastric sleeve had a tubular shape and an even caliber throughout. Once the sleeve resection was completed, the staple line of the gastric sleeve was reinforced with Hemoclips. The resected stomach was retrieved without difficulty from the Darrian port. A gastropexy was then performed in order to prevent postoperative GERD and partial gastric volvulus. Several interrupted 2.0 Surgidac sutures were placed between the sleeve's staple line and the previously divided greater omentum and gastro-colic ligament using the Endo-Stitch device. ?An upper endoscopy was performed. There was no narrowing at the GE junction. The scope was easily advanced all the way to the pylorus which was clearly visualized. There was no narrowing anywhere and the sleeve's caliber was even throughout. The sleeve's staple line was inspected and there was no evidence of ischemia, bleeding or dehiscence. At that point the gastroscope was withdrawn from the patient?s mouth while we were decompressing the bowel and the stomach from any remaining air. I looked into the lesser sac to see how the sleeve was situating and it was situating well. There was no bleeding from the staple line, spleen, or short gastric vessels. The Mediflex retractor was removed, and the undersurface of the liver was inspected and there was no bleeding. The patient was placed in supine position. I closed the fascial defect of the 12 mm port site with a figure of eight #1 Polysorb suture. Then 100 cc 0.25 % Marcaine plain with 10 mg of Dexamethasone were used to infiltrate the fascial closure as well as all skin incisions. At this point, the abdomen was deflated, all ports were removed under direct vision, and no bleeding was noted from any of the port sites. The skin incisions were irrigated with saline and were closed with 4-0 absorbable monofilament sutures. Steri-Strips and OpSites were used to cover all incisions. The patient was extubated and was transferred in stable condition to the recovery room for further care. I was present and performed all damian parts of the procedure. Wilner was the assistant golf course superintendent. There were no residents to assist with this case. Benji Angelo MD, PhD, FACS Surgeon: Dwayne Angelo MD Anesthesia: GETA, local and other (TAP block) Was an Metal Fabricator Welder used for this Procedure?: Yes Metal Fabricator Welder: Judy Darby Estimated blood loss (mL): 10 IV fluids (mL): 2,500 Urine output (mL): 0 (No [place] to record) Pathology: other (Stomach) Condition: stable Disposition: PACU
--- NOTE | 2021-01-07 12:50 | P.DS_ITS ---
DS: Providers Provider Date of Service: 01/08/21 Date of admission: 01/07/21 07:34 Primary care physician: Italia Graham MD DS: Summary Hospital Course Hospital Course: ADMITTING DIAGNOSIS: morbid obesity, SADIA, GERD, depression, osteoarthritis, herpes simplex DISCHARGE DIAGNOSIS: same, s/p laparoscopic sleeve gastrectomy PAST SURGICAL HISTORY: lap [place], hysterectomy, appendectomy, breast and spine surgeries PROCEDURE: upper endoscopy, laparoscopic sleeve gastrectomy and repair of diaphragmatic hernia hernia DISCHARGE SUMMARY: History of Present Illness: The patient is a 55 year-old woman with a BMI of 37.7 kg/m2 and associated co- morbidities as described above. The patient had extensive work-up,lost 16.8 lbs preoperatively and was electively scheduled for laparoscopic, possible open sleeve gastrectomy and gastropexy. Risks and complications of the surgery were discussed with the patient in advance, particularly the possibility of , pulmonary embolism, anastomotic leak, bleeding, bowel injury, GERD, cardiac, renal or pulmonary complications. The patient understood all the risks and was in agreement with the surgical plan. Hospital Course: The patient underwent an uneventful laparoscopic sleeve gastrectomy with gastropexy on the day of admission. Postoperatively, the patient was transferred to the surgical floor. The patient received IV Acetaminophen and IV dilaudid for pain control. Patient was started on bariatric phase 1 diet POD #0. On postoperative day one, the patient was feeling well without nausea, vomiting, fevers, or tachycardia. The patient had some mild incisional pain and the abdomen was soft. On the morning of postoperative day one, the patient was continued on 1 ounce of water or ice every half hour. During the day, the patient did fairly well, having some incisional pain, but able to ambulate adequately and to tolerate liquids well. Since the patient is doing well, we decided that the patient was ready to be discharged. The patient was given instructions to follow-up with me next week and to call my office for any fever over 101, persistent abdominal pain, nausea, vomiting, GERD, symptoms of DVT such as calf tenderness, or leg swelling, or pulmonary embolism such as chest pain or shortness of breath. The patient was also instructed to drink 40-60 ounces of liquids per day using the 1-ounce cups. The patient had been given prescriptions for Tylenol for pain, Zofran prn for nausea, and pantoprazole and carafate previously. The patient was encouraged to ambulate and use the incentive spirometer. The patient was allowed to shower, but no baths, and encouraged to stay active at home. All of these instructions were given to the patient personally. All questions were answered and the patient understood all instructions, the instructions were also given to the patient in print. Time Spent with Patient Time attestation: Total time spent providing and/or coordinating discharge services: Discharge coordination time: Less than 30 minutes Quality: Stroke Does the patient have a stroke diagnosis?: No Physical Exam Vital Signs: Vital Signs: Last Vital Signs Temp 96.9 F 01/07/21 08:27 Pulse 71 01/07/21 08:27 Resp 16 01/07/21 08:27 BP 102/62 01/07/21 08:27 Pulse Ox 98 01/07/21 08:27 Body Mass Index 34.5 DS: Data Data Completed and Pending Pending studies at discharge: Pending at discharge 01/07/21 12:21 Surgical [PTH] Routine Labs on day of discharge: Laboratory Results - last 24 hr 01/07/21 08:10 COVID-19 (JOSE) Negative COVID-19 Clin Com See Note Discharge Plan Discharge Anticipated Discharge Date/Time: 01/08/21 10:46 Patient Disposition: Home, Self-Care Discharge Diagnosis: s/p sleeve gastrectomy Referrals: Italia Graham MD [Primary Care Provider] - 1 Week Discharge Medications: Continued duloxetine 20 mg capsule,delayed release(DR/EC) 20 mg PO DAILY RF: 0 valacyclovir 500 mg tablet 500 mg PO DAILY RF: 0 ondansetron HCl [Zofran] 4 mg tablet 4 mg PO Q12H PRN (Reason: nausea and vomiting) Qty: 20 RF: 0 pantoprazole 40 mg tablet,delayed release (DR/EC) 40 mg PO DAILY Qty: 30 RF: 2 sucralfate 100 mg/mL suspension 10 ml PO BID Qty: 400 RF: 2 Discontinued multivitamin Tablet 1 tab PO DAILY RF: 0 ondansetron HCl [Zofran] 4 mg tablet 4 mg PO Q12H Qty: 14 RF: 0 polyethylene glycol 3350 [Miralax] 17 gram powder in packet 17 g PO DAILY Qty: 14 RF: 0 Discharge Orders: Discharge Order (Routine); Ordered 01/08/21 Ordered By: Dwayne Angelo Diet: other Activity on Discharge: No heavy lifting Stand Alone Forms: Patient Portal Discharge page Care Plan Goals: weight loss Health Concerns: obesity Plan of Treatment: No tub baths, sex or returning to work until discussed at first post op appointment. No exercise, alcohol, tobacco or illegal drug use. Continue to use incentive spirometer hourly while awake. Walk in home for 5- 10 minutes every 2 hours during the first week. Continue phase 1 diet today and start phase 2 diet tomorrow morning. Follow all instructions in the bariatric handbook and call with any questions. The patient's medical history has been reviewed and they are considered low risk for post op DVT and therefore DVT prophylaxis is not considered necessary. Travel after surgery was reviewed. The patient has not disclosed any travel plans during the first 30 days after surgery and they have been advised that within the first 30 days after surgery any bus, plane, train or car travel over 2 hours in duration is contraindicated due to the possibility of developing blood clots from immobility. Any travel, needs to include periods of ambulation of 10 minutes in duration every 2 hours. The patient was instructed to discuss any plans for travel during this period with their bariatric surgeon. Assessment: too s/p sleeve gastrectomy Discharge Date/Time: 01/08/21 09:24
--- NOTE | 2021-01-07 12:53 | P.PNGS_ITS ---
Subjective Subjective Date of Service: 01/08/21 Interval history: Patient has mild incisional pain, but was able to ambulate and use the incentive spirometer. She is tolerating phase 1 bariatric diet Physical Exam Vital Signs: Vital Signs: Last Vital Signs Temp 96.9 F 01/07/21 08:27 Pulse 71 01/07/21 08:27 Resp 16 01/07/21 08:27 BP 102/62 01/07/21 08:27 Pulse Ox 98 01/07/21 08:27 Body Mass Index 34.5 GI: Inspection: Yes normal to inspection and Yes incision (clean, dry and intact) Extrem: Right lower extremity: normal to inspection (no calf tenderness) Left lower extremity: normal to inspection (no calf tenderness) Procedures Date of Service Date of Service: 01/08/21 Progress Note: A&P Assessment and plan (1) S/P laparoscopic sleeve gastrectomy: Status: Acute Assessment and Plan: s/p laparoscopic sleeve gastrectomy and gastropexy Doing well Check am labs. If OK, will discharge home? (2) Obesity: Status: Acute (3) BMI over 35: Status: Acute (4) Sleep apnea with use of continuous positive airway pressure (CPAP): Status: Acute (5) Osteoarthritis: Status: Acute (6) Genital herpes: Status: Acute (7) Depression: Status: Acute (8) GERD (gastroesophageal reflux disease): Status: Acute (9) Steatosis, liver: Status: Acute (10) Liver fibrosis: Status: Acute Fall Risk Details Current Medications: Current Medications Generic Name Dose Route Start Last Admin Trade Name Freq PRN Reason Stop Dose Admin Albuterol Sulfate 2.5 mg 01/07/21 09:24 Albuterol Sulfate (0.083%) 2.5 Mg/3 Ml Vial.Neb INHALE ONCE PRN Wheezing Famotidine 20 mg 01/07/21 12:47 Famotidine/Pf 20 Mg/2 Ml Vial IVPUSH BID RAFAEL Fentanyl 50 mcg 01/07/21 09:24 Fentanyl Citrate/Pf 100 Mcg/2 Ml Vial IVPUSH Q5M PRN Pain, Severe (Pain Scale 7-10) Protocol Fentanyl 25 mcg 01/07/21 09:24 Fentanyl Citrate/Pf 100 Mcg/2 Ml Vial IVPUSH Q5M PRN Pain, Moderate (Pain Scale 4-6 Protocol Hydromorphone HCl 0.5 mg 01/07/21 09:24 Hydromorphone Hcl 0.5 Mg/0.5 Ml Syringe IVPUSH Q5M PRN Pain, Severe (Pain Scale 7-10) Protocol Hydromorphone HCl 0.25 mg 01/07/21 09:24 Hydromorphone Hcl 0.5 Mg/0.5 Ml Syringe IVPUSH Q5M PRN Pain, Severe (Pain Scale 7-10) Protocol Lactated Ringer's 1,000 mls @ 100 mls/hr 01/07/21 07:45 01/07/21 08:45 Lr IVCONT 100 mls/hr .Q10H RAFAEL Administration Promethazine HCl 12.5 mg/ 50.5 mls @ 202 mls/hr 01/07/21 09:24 Sodium Chloride IV ONCE PRN Nausea and Vomiting Lactated Ringer's 1,000 mls @ 125 mls/hr 01/07/21 12:47 Lr IVCONT .Q8H RAFAEL Ondansetron HCl 4 mg 01/07/21 09:24 Ondansetron Hcl 4 Mg/2 Ml Vial IVPUSH ONCE PRN Nausea and Vomiting Oxycodone HCl 10 mg 01/07/21 09:24 Oxycodone Hcl Immed Release 5 Mg Tablet PO ONCE PRN Pain, Severe (Pain Scale 7-10) Oxycodone HCl 5 mg 01/07/21 09:24 Oxycodone Hcl Immed Release 5 Mg Tablet PO ONCE PRN Pain, Severe (Pain Scale 7-10) Time Spent With Patient Time: Total time spent is greater than 50% in coordination of care (as d ocumented) at patient's floor/unit and/or counseling patient: Time with patient: less than 15 minutes Quality Stroke Does the patient have a stroke diagnosis?: No VTE Prior VTE?: No VTE Risk Level:: Surgical - moderate VTE Device Contraindication: N/A - Device Ordered VTE Drug Contraindication: Treatment Not Indicated
[2021-01-07] MEDS: Famotidine/PF 20 MG/2 ML VIAL IVPUSH ×2 (13:09→21:23)
[2021-01-07 13:10] LABS: Hematocrit 39.3 % (37-47); Hemoglobin 13.2 g/dl (12.0-16.0)
[2021-01-07 13:26] LABS: Anion Gap 12 (12-20); Blood Urea Nitrogen 13 mg/dL (9-16); Calcium 8.8 mg/dL (8.4-10.2); Carbon Dioxide 27 mmol/L (22-29); Chloride 106 mmol/L (96-108); Creatinine Clr Calc Pharmacy 81.8; Estimated Glomerular Filt Rate > 60; Glucose Random 94 mg/dL (60-115); Potassium 4.8 mmol/L (3.3-5.1); Sodium 140 mmol/L (135-145)
[2021-01-07] MEDS: Lactated Ringers 1,000 ML 125 ML IVCONT ×2 (13:47→21:24)
[2021-01-07] MEDS: ondansetron HCL 4 MG/2 ML VIAL IVPUSH ×2 (14:03→22:34)
[2021-01-07] MEDS: 0.9 % Sodium Chloride Flush 3 ML SYRINGE IVFLUSH ×2 (15:02→21:23)
[2021-01-08] VITALS: BP 129/59; PULSE 48; RESP 16; TEMP 37.1; O2SAT 100
[2021-01-08 04:00] VITALS: BP 127/65; PULSE 54; RESP 16; TEMP 36.1; O2SAT 98
[2021-01-08] MEDS: Lactated Ringers 1,000 ML 125 ML IVCONT (05:35)
[2021-01-08] MEDS: ondansetron HCL 4 MG/2 ML VIAL IVPUSH (05:36)
[2021-01-08 05:42] LABS: MANUAL DIFF FLAG NO
[2021-01-08 05:44] LABS: Basophils Percent Auto 0.1 % (0-2); Hematocrit 38.3 % (37-47); Hemoglobin 12.8 g/dl (12.0-16.0); Imm Gran Abs Auto 0.02 X10*3/uL (0.00-0.03); Imm Gran Pct Auto 0.2 % (0.0-0.4); Lymphocytes Absolute Auto 1.3 X10*3/uL (1.2-4.9); Lymphocytes Percent Auto 13.4 % (20-40); Mean Corpuscular HGB Conc 33.4 g/dl (31.0-35.0); Mean Corpuscular Hemoglobin 32.1 pg (27.0-33.0); Mean Platelet Volume 10.3 fL (9.4-12.3); Monocytes Absolute Auto 0.6 X10*3/uL (0.1-1.2); Monocytes Percent Auto 6.1 % (2-11); Neutrophils Percent Auto 80.2 % (45-73); Platelet Count 238 X10*3/uL (160-400); Red Blood Count 3.99 X10*6/uL (4.20-5.50); Red Cell Distribution Width 12.5 % (11.0-16.0)
[2021-01-08 06:24] LABS: Anion Gap 14 (12-20); Blood Urea Nitrogen 12 mg/dL (9-16); Calcium 8.9 mg/dL (8.4-10.2); Carbon Dioxide 25 mmol/L (22-29); Chloride 105 mmol/L (96-108); Creatinine Clr Calc Pharmacy 84.8; Estimated Glomerular Filt Rate > 60; Glucose Random 124 mg/dL (60-115); Sodium 139 mmol/L (135-145)
[2021-01-08 08:00] VITALS: BP 146/63; PULSE 60; RESP 20; TEMP 35.8; O2SAT 100
[2021-01-08] MEDS: Famotidine/PF 20 MG/2 ML VIAL IVPUSH (08:40)
--- NOTE | 2021-01-08 09:45 | MHC.CM.PN ---
CM ATTEMPTED TO MEET W/PT HOWEVER PT HAD ALREADY DISCHARGED HOME, PT DISCHARGED HOME SELF-CARE W/FOLLOW-UP IN SURGEONS OFFICE, PT ARRANGED TRANSPORT.
[2021-01-08 10:31] LABS: Insulin Level Total 2.8 uIU/mL
--- NOTE | 2021-01-08 13:47 | HO.POSTANES ---
Post Anesthesia Evaluation Post Anesthesia Evaluation Vital Signs: Vital Signs Temp Pulse Resp BP Pulse Ox 01/08/21 08:00 96.5 F L 60 20 146/63 H 100 01/08/21 04:00 96.9 F 54 16 127/65 98 Anesthesia: General Endotracheal-GETA Mental Status: Awake Pain Control: Satisfactory Nausea/Vomiting: None Hydration: Adequate Anesthesia-Related Issues: No Anes. Related Issues
== END 2021-01-08 09:24 | disposition home or self-care (01) | DRG 403 ==
LOC: HO.SSSA 12:50 → HO.S3 14:10
PROVIDERS: Physician Assistant; Absent Provider Physician Assistant; Admitting Provider Surgery; PCP Internal Medicine; Visit Provider Surgery
PROC: 0DB64Z3 Excision of Stomach, Percutaneous Endoscopic Approach, Vertical (ICD-10-PCS; CPT 43845; principal; 2021-01-07 10:10)
DX: E66.01 Morbid (severe) obesity due to excess calories (principal); K74.00 Hepatic fibrosis, unspecified; A60.00 Herpesviral infection of urogenital system, unspecified; F32.9 Major depressive disorder, single episode, unspecified; K21.9 Gastro-esophageal reflux disease without esophagitis; M19.90 Unspecified osteoarthritis, unspecified site; G47.30 Sleep apnea, unspecified; L70.9 Acne, unspecified; K76.0 Fatty (change of) liver, not elsewhere classified; Z68.35 Body mass index [BMI] 35.0-35.9, adult; Z99.89 Dependence on other enabling machines and devices; Z79.899 Other long term (current) drug therapy
CPT/HCPCS: 36415; 80048; 80053; 80061; 83036; 83525; 84443; 85014; 85018; 85025; 85610; 85730; 86140; 86850; 86900; 86901; 87635; 88307; 88342; 99024; A4649; J0131; J0461; J0690; J1100; J1170; J2250; J2405; J3010

== ENCOUNTER → 2021-01-15 07:22 | Outpatient (BNVA) | payer OTHER, SELFPAY | PROVIDERS: PCP Internal Medicine; Visit Provider Surgery | DX: E66.9 Obesity, unspecified (principal); Z68.32 Body mass index [BMI] 32.0-32.9, adult; Z98.84 Bariatric surgery status | CPT/HCPCS: 99212 ==

== ENCOUNTER → 2021-02-15 08:01 | Outpatient (BNVA) | payer OTHER, SELFPAY | PROVIDERS: PCP Internal Medicine; Visit Provider Surgery | DX: E66.9 Obesity, unspecified (principal); Z68.30 Body mass index [BMI] 30.0-30.9, adult | CPT/HCPCS: 99212 ==

== ENCOUNTER → 2021-03-11 07:57 | Outpatient (BNVA) | payer OTHER, SELFPAY | PROVIDERS: PCP Internal Medicine; Visit Provider Physician Assistant Surgical | DX: E66.9 Obesity, unspecified (principal); Z68.30 Body mass index [BMI] 30.0-30.9, adult | CPT/HCPCS: 99212 ==

== ENCOUNTER → 2021-04-12 08:02 | Outpatient (BNVA) | payer OTHER, SELFPAY | PROVIDERS: PCP Internal Medicine; Visit Provider Physician Assistant Surgical ==

== ENCOUNTER → 2021-04-27 08:06 | Outpatient (BNVA) | payer OTHER, SELFPAY | PROVIDERS: PCP Internal Medicine; Visit Provider Dietitian, Registered | DX: E66.3 Overweight (principal); Z68.28 Body mass index [BMI] 28.0-28.9, adult | CPT/HCPCS: 97803 ==

== ENCOUNTER → 2021-05-10 08:00 | Outpatient (BNVA) | payer OTHER, SELFPAY | PROVIDERS: PCP Internal Medicine; Visit Provider Physician Assistant Surgical ==

== ENCOUNTER 2021-07-09 12:25 | Outpatient (REF) | payer OTHER, SELFPAY ==
[2021-07-09 14:04] LABS: MANUAL DIFF FLAG NO
[2021-07-09 14:40] LABS: Basophils Percent Auto 0.3 % (0-2); Eosinophils Absolute Auto 0.1 X10*3/uL (0.0-0.4); Eosinophils Percent Auto 1.1 % (0-4); Hematocrit 43.6 % (37.0-47.0); Hemoglobin 14.2 g/dl (12.0-16.0); Imm Gran Abs Auto 0.03 X10*3/uL (0.00-0.03); Imm Gran Pct Auto 0.4 % (0.0-0.4); Lymphocytes Absolute Auto 2.7 X10*3/uL (1.2-4.9); Lymphocytes Percent Auto 37.2 % (20-40); Mean Corpuscular HGB Conc 32.6 g/dl (31.0-35.0); Mean Corpuscular Hemoglobin 32.3 pg (27.0-33.0); Mean Corpuscular Volume 99.1 fL (80.0-98.0); Mean Platelet Volume 10.4 fL (9.4-12.3); Monocytes Absolute Auto 0.5 X10*3/uL (0.1-1.2); Monocytes Percent Auto 7.1 % (2-11); Neutrophils Absolute Auto 3.9 x10*3/uL (2.0-8.3); Neutrophils Percent Auto 53.9 % (45-73); Platelet Count 249 X10*3/uL (160-400); Red Cell Distribution Width 12.4 % (11.0-16.0); White Blood Count 7.2 X10*3/uL (4.8-10.8)
[2021-07-09 15:17] LABS: Anion Gap 12 (12-20); Blood Urea Nitrogen 32 mg/dL (9-16); Calcium 9.7 mg/dL (8.4-10.2); Carbon Dioxide 28 mmol/L (22-29); Chloride 106 mmol/L (96-108); Cholesterol 236 mg/dL; Estimated Glomerular Filt Rate > 60; Glucose Random 79 mg/dL (60-115); HDL Cholesterol 65 mg/dL; Iron 85 mcg/dL (30-160); LDL Cholesterol Calculated 155 mg/dl; Potassium 5.1 mmol/L (3.3-5.1); Sodium 141 mmol/L (135-145); Triglycerides 81 mg/dL
[2021-07-09 15:34] LABS: TSH reflex Free T4 0.46 uIU/mL (0.32-4.0); Vitamin D 25-OH Total 57.4 ng/mL (>30)
[2021-07-09 15:39] LABS: Folate 19.7 ng/mL (> or = 4.0); Vitamin B12 782 pg/mL (200-900)
[2021-07-09 15:42] LABS: Ferritin 175 ng/mL (10-250)
[2021-07-09 15:48] LABS: Percent Iron Saturation 31 % (15-50); Total Iron Binding Capacity 275 mcg/dL (228-428); Unsaturated Iron Binding 190 ug/dL
[2021-07-12 16:41] LABS: Calcium (PTHI) 9.9 mg/dL (8.6-10.4); PTHI 32 pg/mL (14-64)
[2021-07-14 00:07] LABS: Zinc 57 mcg/dL (60-130)
[2021-07-15 14:05] LABS: Vitamin B1 16 nmol/L (8-30)
[2021-07-16 10:26] LABS: Vitamin A 42 mcg/dL (38-98)
== END 2021-07-09 12:26 | disposition home or self-care (01) ==
LOC: HO.LAB 12:25
PROVIDERS: PCP Internal Medicine; Visit Provider Physician Assistant Surgical
DX: E66.3 Overweight (principal); Z68.26 Body mass index [BMI] 26.0-26.9, adult; Z71.3 Dietary counseling and surveillance
CPT/HCPCS: 36415; 80048; 80061; 82306; 82607; 82728; 82746; 83540; 83970; 84425; 84443; 84590; 84630; 85025; 86140; 99212

== ENCOUNTER 2022-01-15 07:01 | Outpatient (REF) | payer OTHER, SELFPAY ==
[2022-01-15 08:30] LABS: Alanine Aminotransferase 23 U/L (0-31); Albumin Level 4.2 g/dL (3.5-5.0); Alkaline Phosphatase 50 U/L (39-117); Anion Gap 14 (12-20); Aspartate Amino Transferase 21 U/L (5-31); Bilirubin Total 0.8 mg/dL (0.0-1.0); Blood Urea Nitrogen 19 mg/dL (9-16); C Reactive Protein 0.12 mg/dL (< or = 0.50); Calcium 9.3 mg/dL (8.4-10.2); Carbon Dioxide 27 mmol/L (22-29); Chloride 107 mmol/L (96-108); Cholesterol 230 mg/dL; Estimated Glomerular Filt Rate > 60; Glucose Random 81 mg/dL (60-115); HDL Cholesterol 76 mg/dL; Iron 109 mcg/dL (30-160); LDL Cholesterol Calculated 142 mg/dl; Percent Iron Saturation 38 % (15-50); Potassium 4.7 mmol/L (3.3-5.1); Sodium 143 mmol/L (135-145); Total Iron Binding Capacity 287 mcg/dL (228-428); Total Protein 6.9 g/dL (6.5-8.0); Triglycerides 62 mg/dL; Unsaturated Iron Binding 178 ug/dL
[2022-01-15 09:31] LABS: Ferritin 170 ng/mL (10-250); TSH reflex Free T4 0.83 uIU/mL (0.32-4.0); Vitamin D 25-OH Total 34.3 ng/mL (>30)
[2022-01-15 10:03] LABS: Folate > 20.0 ng/mL (> or = 4.0); Vitamin B12 520 pg/mL (200-900)
[2022-01-15 10:04] LABS: Insulin 5 uU/mL (2-29)
[2022-01-15 10:19] LABS: MANUAL DIFF FLAG NO
[2022-01-15 10:34] LABS: Basophils Percent Auto 0.5 % (0-2); Eosinophils Absolute Auto 0.1 X10*3/uL (0.0-0.4); Eosinophils Percent Auto 1.7 % (0-4); Hematocrit 42.4 % (37.0-47.0); Hemoglobin 14.2 g/dl (12.0-16.0); Imm Gran Abs Auto 0.02 X10*3/uL (0.00-0.03); Imm Gran Pct Auto 0.3 % (0.0-0.4); Lymphocytes Absolute Auto 2.6 X10*3/uL (1.2-4.9); Lymphocytes Percent Auto 44.4 % (20-40); Mean Corpuscular HGB Conc 33.5 g/dl (31.0-35.0); Mean Corpuscular Hemoglobin 32.4 pg (27.0-33.0); Mean Corpuscular Volume 96.8 fL (80.0-98.0); Mean Platelet Volume 9.7 fL (9.4-12.3); Monocytes Absolute Auto 0.5 X10*3/uL (0.1-1.2); Monocytes Percent Auto 8.3 % (2-11); Neutrophils Absolute Auto 2.6 x10*3/uL (2.0-8.3); Neutrophils Percent Auto 44.8 % (45-73); Platelet Count 252 X10*3/uL (160-400); Red Blood Count 4.38 X10*6/uL (4.20-5.50); Red Cell Distribution Width 12.4 % (11.0-16.0); White Blood Count 5.8 X10*3/uL (4.8-10.8)
[2022-01-15 10:44] LABS: Estimated Average Glucose 108 mg/dL; Hemoglobin A1c % 5.4 %
[2022-01-17 20:32] LABS: Calcium (PTHI) 9.1 mg/dL (8.6-10.4); PTHI 59 pg/mL (16-77)
[2022-01-20 01:27] LABS: Zinc 90 mcg/dL (60-130)
[2022-01-20 06:16] LABS: Vitamin B1 16 nmol/L (8-30)
[2022-01-20 09:36] LABS: Vitamin A 49 mcg/dL (38-98)
== END 2022-01-15 07:02 | disposition home or self-care (01) ==
LOC: HO.LAB 07:01
PROVIDERS: Visit Provider Physician Assistant Surgical
DX: Z98.84 Bariatric surgery status (principal)
CPT/HCPCS: 36415; 80053; 80061; 82306; 82607; 82728; 82746; 83036; 83525; 83540; 83970; 84425; 84443; 84590; 84630; 85025; 86140

== ENCOUNTER → 2022-01-25 12:30 | Outpatient (BNVA) | payer OTHER, SELFPAY | PROVIDERS: PCP Internal Medicine; Visit Provider Counselor Mental Health | DX: F43.20 Adjustment disorder, unspecified (principal); Z98.84 Bariatric surgery status | CPT/HCPCS: 90832 ==

== ENCOUNTER → 2022-02-04 10:43 | Outpatient (BNVA) | payer OTHER, SELFPAY | PROVIDERS: PCP Internal Medicine; Visit Provider Dietitian, Registered | DX: E66.9 Obesity, unspecified (principal); Z68.29 Body mass index [BMI] 29.0-29.9, adult | CPT/HCPCS: 97803 ==

== ENCOUNTER → 2022-02-15 13:21 | Outpatient (BNVA) | payer OTHER, SELFPAY | PROVIDERS: PCP Internal Medicine; Visit Provider Dietitian, Registered | DX: E66.3 Overweight (principal); Z68.37 Body mass index [BMI] 37.0-37.9, adult | CPT/HCPCS: 97803 ==

== ENCOUNTER → 2022-12-16 12:30 | Outpatient (BNVA) | payer OTHER, SELFPAY | PROVIDERS: PCP Internal Medicine; Visit Provider Dietitian, Registered | DX: E66.9 Obesity, unspecified (principal); Z68.29 Body mass index [BMI] 29.0-29.9, adult | CPT/HCPCS: 97803 ==

== ENCOUNTER → 2022-12-30 12:47 | Outpatient (BNVA) | payer OTHER, SELFPAY | PROVIDERS: PCP Internal Medicine; Visit Provider Dietitian, Registered | DX: E66.9 Obesity, unspecified (principal); Z98.84 Bariatric surgery status; Z71.3 Dietary counseling and surveillance | CPT/HCPCS: 97803 ==

== ENCOUNTER 2023-01-07 07:01 | Outpatient (REF) | payer OTHER, SELFPAY ==
[2023-01-07 07:17] LABS: MANUAL DIFF FLAG NO
[2023-01-07 07:39] LABS: Basophils Percent Auto 0.4 % (0-2); Eosinophils Absolute Auto 0.1 X10*3/uL (0.0-0.4); Eosinophils Percent Auto 1.9 % (0-4); Hematocrit 43.5 % (37.0-47.0); Hemoglobin 14.6 g/dl (12.0-16.0); Imm Gran Abs Auto 0.01 X10*3/uL (0.00-0.03); Imm Gran Pct Auto 0.2 % (0.0-0.4); Lymphocytes Percent Auto 36.8 % (20-40); Mean Corpuscular HGB Conc 33.6 g/dl (31.0-35.0); Mean Corpuscular Hemoglobin 32.3 pg (27.0-33.0); Mean Corpuscular Volume 96.2 fL (80.0-98.0); Mean Platelet Volume 9.7 fL (9.4-12.3); Monocytes Absolute Auto 0.5 X10*3/uL (0.1-1.2); Monocytes Percent Auto 9.4 % (2-11); Neutrophils Absolute Auto 2.7 x10*3/uL (2.0-8.3); Neutrophils Percent Auto 51.3 % (45-73); Platelet Count 235 X10*3/uL (160-400); Red Blood Count 4.52 X10*6/uL (4.20-5.50); Red Cell Distribution Width 11.7 % (11.0-16.0); White Blood Count 5.3 X10*3/uL (4.8-10.8)
[2023-01-07 07:54] LABS: Estimated Average Glucose 103 mg/dL; Hemoglobin A1c % 5.2 % (<6.0)
[2023-01-07 08:08] LABS: Anion Gap 8 (12-20); Blood Urea Nitrogen 16 mg/dL (9-16); C Reactive Protein < 0.10 mg/dL (< or = 0.50); Calcium 9.6 mg/dL (8.4-10.2); Carbon Dioxide 30 mmol/L (22-29); Chloride 108 mmol/L (96-108); Cholesterol 225 mg/dL (<200); Estimated Glomerular Filt Rate > 60; Glucose Random 86 mg/dL (60-115); HDL Cholesterol 77 mg/dL (>40); Iron 105 mcg/dL (30-160); LDL Cholesterol Calculated 137 mg/dL (<100); Percent Iron Saturation 43 % (15-50); Potassium 4.8 mmol/L (3.3-5.1); Sodium 141 mmol/L (135-145); Total Iron Binding Capacity 247 mcg/dL (228-428); Triglycerides 55 mg/dL (<150); Unsaturated Iron Binding 142 ug/dL
[2023-01-07 08:25] LABS: Ferritin 162 ng/mL (10-250); Insulin 5 uU/mL (2-29); TSH reflex Free T4 0.79 uIU/mL (0.32-4.0)
[2023-01-07 08:37] LABS: Folate 15.1 ng/mL (> or = 4.0); Vitamin B12 1021 pg/mL (200-900)
[2023-01-10 17:09] LABS: Calcium (PTHI) 9.4 mg/dL (8.6-10.4); PTHI 62 pg/mL (16-77)
[2023-01-11 06:10] LABS: Zinc 90 mcg/dL (60-130)
[2023-01-12 02:19] LABS: Vitamin A 48 mcg/dL (38-98)
[2023-01-13 07:38] LABS: Vitamin B1 17 nmol/L (8-30)
== END 2023-01-07 07:02 | disposition home or self-care (01) ==
LOC: HO.LAB 07:01
PROVIDERS: PCP Internal Medicine; Visit Provider Physician Assistant Surgical
DX: E66.9 Obesity, unspecified (principal); K74.00 Hepatic fibrosis, unspecified; Z98.84 Bariatric surgery status
CPT/HCPCS: 36415; 80048; 80061; 82306; 82607; 82728; 82746; 83036; 83525; 83540; 83970; 84425; 84443; 84590; 84630; 85025; 86140

== ENCOUNTER 2023-11-08 14:09 | Outpatient (AMB) | payer OTHER, SELFPAY ==
--- NOTE | 2023-11-08 14:07 | A.OFFVIS_ITS ---
VS Expanded 11/08/23 14:09 Height 5 ft 4 in Weight 176 lb BMI 30.2 Intake Visit Reasons: (TV) PO LSG 01/07/2021 Allergies Seasonal Allergies Allergy (Severe, Verified 07/09/21 12:58) Anaphylaxis clarithromycin [From Biaxin] Allergy (Verified 07/09/21 12:58) nausea Medication List - Last Reconciled 11/08/23 by LANCE Martin multivitamin 1 tab PO DAILY valacyclovir 500 mg PO DAILY vortioxetine (Trintellix) 10 mg PO DAILY HPI Comments Details: This?is a?58?yo female who is s/p LSG 01/07/2021. Weight at last visit on 12/30/2022 was 171 pounds; weight today is 176 pounds, representing a 5 pound weight gain with a BMI today of 30.2.? No complaints of nausea, emesis, abdominal pain or reflux, or constipation. Pt reports I'm really struggling . Does not feel much restriction, having cravings/hunger. I'm so busy I don't have time to plan anything. Caring for her elderly father. Likes [employer]g [employer]. Present meal plan includes: 2 eggs, onions and peppers and a little cheese lunch chicken salad with avocado dinner: pork chop and green beans Exercise routine includes: not much free time to work out but does have some exercise equipment at home [facility] Medical History BMI 37.0-37.9, adult Cholecystectomy planned Depression Genital herpes GERD (gastroesophageal reflux disease) Hypersomnolence Liver fibrosis Obesity, Class II, BMI 35-39.9 SADIA (obstructive sleep apnea) Osteoarthritis Sleep apnea with use of continuous positive airway pressure (CPAP) Snoring Steatosis, liver Surgical History History of bunionectomy History of partial hysterectomy History of surgery on arm Hx of appendectomy Hx of breast surgery Hx of spinal surgery Family History Mother No problems noted. Father Heart disease Hearing loss Parkinson disease Sister No problems noted. Sister No problems noted. Sister No problems noted. Brother Heart disease Brother No problems noted. Brother Heart disease Arthritis Social History Household Members: Significant Other Housing: House Do you presently have visiting nurse or other home services: No Alcohol intake: current Alcohol intake frequency: holidays/special occasions only Patient Tobacco Use Status: Never used Tobacco Tobacco use type: Cigarette Telehealth Telehealth Telehealth Platform: Telephone Location of provider rendering services: practice address Location of patient: address on file Patient Identification confirmed using: Name, : Yes Telehealth method: voice only Patient verbally consented to treatment: Yes Patient verbally consented to billing insurance company: Yes Patient informed of any privacy concerns related to visit: Yes Minutes spent on Phone/Video with Pt.: 16 Assessment & Plan Assessment & Plan (1) S/P laparoscopic sleeve gastrectomy: Code(s): Z98.84 - Bariatric surgery status Category: Surgical (2) Obesity: Code(s): E66.9 - Obesity, unspecified Category: Medical Plan Pt needs to go back to a plan with higher protein intake, encouraged her to restart Fairlife shakes or can make a protein coffee in the morning. Protein goal 70-75g per day, does not want a plan solely based on shakes and bars, tired of bars. Recommended 1 fairlife shake, 1 anguillan yogurt, 1 meal of 2-3oz protein, 1 additional meal with ~15g protein (like 2 eggs) Encouraged pt to restart exercise routine, even just 15-20 min per day to start, try to do daily. RTC 3 months, can recheck labs at that time. Gave pt my work cell # and encouraged her to reach out between appts with any questions or concerns. I spent a total of 30 minutes reviewing/updating records, examining the patient and counseling the patient on weight management as detailed above.
[2023-11-08 14:09] VITALS: BMI 30.2
== END 2023-11-08 14:33 | disposition home or self-care (01) ==
LOC: HO.HBS 14:09
PROVIDERS: PCP Internal Medicine; Visit Provider Physician Assistant Surgical
DX: E66.9 Obesity, unspecified (principal); Z68.30 Body mass index [BMI] 30.0-30.9, adult; Z90.3 Acquired absence of stomach [part of]; Z98.84 Bariatric surgery status
CPT/HCPCS: 99442

== ENCOUNTER → 2023-11-08 14:09 | Outpatient (BNVA) | payer OTHER, SELFPAY | PROVIDERS: PCP Internal Medicine; Visit Provider Physician Assistant Surgical ==

== ENCOUNTER 2024-02-19 10:12 | Outpatient (AMB) | payer OTHER, SELFPAY ==
--- NOTE | 2024-02-19 10:05 | A.OFFVIS_ITS ---
VS Expanded 02/19/24 10:11 Height 5 ft 4 in Weight 190 lb BMI 32.6 Intake Visit Reasons: TELEPHONE PO LSG 01/07/21 Allergies Seasonal Allergies Allergy (Severe, Verified 07/09/21 12:58) Anaphylaxis clarithromycin [From Biaxin] Allergy (Verified 07/09/21 12:58) nausea Medication List - Last Reconciled 02/19/24 by LANCE Martin multivitamin 1 tab PO DAILY valacyclovir 500 mg PO DAILY vortioxetine (Trintellix) 10 mg PO DAILY HPI Comments Details: This?is a?59?yo female who is s/p LSG 01/07/2021. Presents for 3 year post op visit. Weight at last visit on 11/08/2023 was 176 pounds with a BMI of 30.2, weight today is 190 pounds, representing a 14 pound weight gain with a BMI today of 32.6.? No complaints of nausea, emesis, abdominal pain or reflux, or constipation. I'm too busy. Eating all kinds of stuff. Trying weight watchers again, bought a Lumen. Present meal plan includes: Cheese stick with nuts and grapes Lunch- leftovers, pasta, tries to control portions has been having ice cream at last visit- 1 fairlife shake, 1 maltese yogurt, 1 meal of 2-3oz protein, 1 additional meal with ~15g protein (like 2 eggs) taking MVI Exercise routine includes: bought an exercise bike arriving this week [facility] Medical History BMI 37.0-37.9, adult Cholecystectomy planned Depression Genital herpes GERD (gastroesophageal reflux disease) Hypersomnolence Liver fibrosis Obesity, Class II, BMI 35-39.9 SADIA (obstructive sleep apnea) Osteoarthritis Sleep apnea with use of continuous positive airway pressure (CPAP) Snoring Steatosis, liver Surgical History History of bunionectomy History of partial hysterectomy History of surgery on arm Hx of appendectomy Hx of breast surgery Hx of spinal surgery Family History Mother No problems noted. Father Heart disease Hearing loss Parkinson disease Sister No problems noted. Sister No problems noted. Sister No problems noted. Brother Heart disease Brother No problems noted. Brother Heart disease Arthritis Social History Household Members: Significant Other Housing: House Do you presently have visiting nurse or other home services: No Alcohol intake: current Alcohol intake frequency: holidays/special occasions only Patient Tobacco Use Status: Never used Tobacco Tobacco use type: Cigarette Telehealth Telehealth Telehealth Platform: Telephone Location of provider rendering services: practice address Location of patient: address on file Patient Identification confirmed using: Name, : Yes Telehealth method: voice only Patient verbally consented to treatment: Yes Patient verbally consented to billing insurance company: Yes Patient informed of any privacy concerns related to visit: Yes Minutes spent on Phone/Video with Pt.: 18 Assessment & Plan Assessment & Plan (1) BMI 32.0-32.9,adult: Code(s): Z68.32 - Body mass index [BMI] 32.0-32.9, adult Category: Medical (2) S/P laparoscopic sleeve gastrectomy: Code(s): Z98.84 - Bariatric surgery status Category: Surgical Plan Discussed getting back to high protein meal plan, eating too many carbs and not on a schedule. Reiterated previous high protein meal plan, resuming exercise. Sent healthy foods list and portion sizes. Annual labs ordered. RTC 1 year, pt's insurance may not cover more frequent visits. Sent plan to pt via text and encouraged her to reach out weekly with updates. I spent a total of 30 minutes reviewing/updating records, examining the patient and counseling the patient on weight management as detailed above. Orders: Orders Insulin Today Z.84 - Bariatric surgery status C Reactive Protein Today Z98.84 - Bariatric surgery status Vitamin B1 Today Z98.84 - Bariatric surgery status Ferritin Today Z98.84 - Bariatric surgery status Hemoglobin A1c Today Z98.84 - Bariatric surgery status Complete Blood Count Auto Diff Today Z98.84 - Bariatric surgery status Lipid Panel Today Z.84 - Bariatric surgery status IRON PROFILE Today Z.84 - Bariatric surgery status Comprehensive Met. Panel Today Z.84 - Bariatric surgery status Vitamin B12 and Folate Today Z98.84 - Bariatric surgery status Zinc Today Z98.84 - Bariatric surgery status Vitamin A Today Z.84 - Bariatric surgery status TSH reflex Free T4 Today Z98.84 - Bariatric surgery status Vitamin D 25-OH Total Today Z98.84 - Bariatric surgery status
[2024-02-19 10:11] VITALS: BMI 32.6
== END 2024-02-19 10:32 | disposition home or self-care (01) ==
LOC: HO.HBS 10:12
PROVIDERS: PCP Internal Medicine; Visit Provider Physician Assistant Surgical
DX: E66.811 Obesity, class 1 (principal); Z68.32 Body mass index [BMI] 32.0-32.9, adult; Z90.3 Acquired absence of stomach [part of]; Z98.84 Bariatric surgery status
CPT/HCPCS: 99214

== ENCOUNTER → 2024-02-19 10:12 | Outpatient (BNVA) | payer OTHER, SELFPAY | PROVIDERS: PCP Internal Medicine; Visit Provider Physician Assistant Surgical ==

== ENCOUNTER 2024-08-05 12:10 | Outpatient (AMB) | payer OTHER, SELFPAY ==
--- NOTE | 2024-08-05 12:01 | MHC.OFFVISWM ---
Intake Visit Reasons: TELEPHONE PO LSG 01/07/21 Allergies Seasonal Allergies Allergy (Severe, Verified 07/09/21 12:58) Anaphylaxis clarithromycin [From Biaxin] Allergy (Verified 07/09/21 12:58) nausea Medication List - Last Reconciled 08/05/24 by LANCE Martin multivitamin 1 tab PO DAILY thiamine HCl (vitamin B1) 100 mg PO DAILY valacyclovir 500 mg PO DAILY vit C,U-Hd-ohrzh-lutein-zeaxan 250-90-40-1 mg (PreserVision AREDS-2) 1 tab PO BID vitamin A palmitate 10,000 units PO DAILY vortioxetine (Trintellix) 10 mg PO DAILY HPI Comments Details: This?is a?59?yo female who is s/p LSG 01/07/2021. Presents for 3.5 years post op visit. Weight at last visit on 02/19/2024 was 190 pounds with a BMI of 32.6, weight today is estimated to be about the same. No complaints of nausea, emesis, abdominal pain or reflux, or constipation. She has tried phentermine in the past, was not very effective. Present meal plan includes: Cheese stick with nuts and grapes Lunch- leftovers, pasta, tries to control portions has been having ice cream at last visit- 1 fairlife shake, 1 polish yogurt, 1 meal of 2-3oz protein, 1 additional meal with ~15g protein (like 2 eggs) taking MVI [facility] Medical History BMI 37.0-37.9, adult Cholecystectomy planned Depression Genital herpes GERD (gastroesophageal reflux disease) Hypersomnolence Liver fibrosis Obesity, Class II, BMI 35-39.9 SADIA (obstructive sleep apnea) Osteoarthritis Sleep apnea with use of continuous positive airway pressure (CPAP) Snoring Steatosis, liver Surgical History History of bunionectomy History of partial hysterectomy History of surgery on arm Hx of appendectomy Hx of breast surgery Hx of spinal surgery Family History Mother No problems noted. Father Heart disease Hearing loss Parkinson disease Sister No problems noted. Sister No problems noted. Sister No problems noted. Brother Heart disease Brother No problems noted. Brother Heart disease Arthritis Social History Household Members: Significant Other Housing: House Do you presently have visiting nurse or other home services: No Alcohol intake: current Alcohol intake frequency: holidays/special occasions only Patient Tobacco Use Status: Never used Tobacco Tobacco use type: Cigarette Telehealth Telehealth Telehealth Platform: Telephone Location of provider rendering services: practice address Location of patient: address on file Patient Identification confirmed using: Name, : Yes Telehealth method: voice only Patient verbally consented to treatment: Yes Patient verbally consented to billing insurance company: Yes Patient informed of any privacy concerns related to visit: Yes Minutes spent on Phone/Video with Pt.: 16 Assessment & Plan Assessment & Plan (1) S/P laparoscopic sleeve gastrectomy: Code(s): Z98.84 - Bariatric surgery status Category: Medical (2) Obesity: Code(s): E66.9 - Obesity, unspecified Category: Medical Plan Pt is interested in starting GLP1. Reviewed contraindications, discussed dosing. Discussed need for adequate protein intake while on GLP1s as well as frequent communication with our office. Pt will check in with me weekly and is aware that subsequent Rx will be dependent on frequent communication. Target protein 75-80g. Info for [employer]on texted to pt. She had labs done at [facility], will text me results. RTC 6-8 weeks. Medications: New Zepbound (tirzepatide (weight loss)) for 4 weeks 2.5 mg (0.5 mL) subcut QWEEK 2 mL 0RF NS
--- OUTSIDE RECORDS SUMMARY | 2024-08-05 14:35 | XMS_ITS | Clinical Summary ---
Author Organization [facility] [address] [facility] Address [address] [place] [address] Phone Care Team Providers Care Tile Presser Name Role Phone Vaishali Veloz Primary Care Provider [phone] Allergies Active Allergy Reactions Criticality Noted Date Comments Amoxicillin-Pot Clavulanate Nausea And Vomiting 04/03/2024 Clarithromycin Nausea Only,Dizziness 04/25/2017 No reaction documented Medications vortioxetine (Trintellix) 10 mg tablet Take 1 tablet (10 mg total) by mouth 1 (one) time each day. 02/02/2024 Active ergocalciferol (VITAMIN D-2) 1,250 mcg (50,000 unit) capsule Take 1 Capsule by mouth once a week. 08/09/2023 Active tretinoin (RETIN-A) 0.025 % cream APPLY ON AFFECTED AREA DAILY 06/14/2023 Active acetaminophen (TYLENOL) 500 mg tablet Take 1 tablet (500 mg total) by mouth every 6 (six) hours if needed. Active vitamin A 3,000 mcg (10,000 unit) capsule Take 1 capsule (10,000 Units total) by mouth 1 (one) time each day. Active thiamine 100 mg tablet Take 1 tablet (100 mg total) by mouth 1 (one) time each day. Active albuterol HFA (PROAIR HFA ; PROVENTIL HFA ; VENTOLIN HFA) 90 mcg/actuation inhaler TAKE 2 PUFFS (INHALATION) EVERY 6 HOURS (SHORTNESS OF BREATH OR WHEEZING) FOR 10 DAYS 05/16/2023 Active fluticasone propionate (FLONASE) 50 mcg/actuation nasal spray USE 2 SPRAYS IN NOSTRILS DAILY X1 WEEK THEN 1-2 SPRAYS DAILY. USE LOWEST POSSIBLE DOSE AFTER WEEK 1 02/08/2024 Active estradioL (ESTRACE) 1 mg tablet Take 1 tablet (1 mg total) by mouth 1 (one) time each day. 90 tablet 3 05/13/2024 Active valACYclovir (VALTREX) 500 mg tablet TAKE 1 TABLET BY MOUTH EVERY DAY 90 tablet 3 06/18/2024 Active Active Problems Problem Noted Date Diagnosed Date Moderate episode of recurrent major depressive d isorder 02/24/2021 History of sleeve gastrectomy 02/24/2021 HSV (herpes simplex virus) anogenital infection 03/06/2019 Multiple thyroid nodules 07/03/2018 Cervical spinal stenosis 06/26/2018 Overview (02/21/2024): S/p discectomy and anterior cervical fusion Interstitial cystitis 05/14/2017 Allergic rhinitis 04/25/2017 Leiomyoma of uterus 04/25/2017 Migraine 04/25/2017 Urinary incontinence 04/25/2017 Overview (02/21/2024): Mixed, urge and stress Vitamin D deficiency 04/25/2017 Insomnia 04/03/2017 Anxiety 03/30/2017 Prediabetes 03/30/2017 Restless leg syndrome 03/30/2017 Encounters Date Type Department Care Team Description 05/13/2024 2:30 PM EST Office Visit Obstetrics and Gynecology [address] [phone] [place], [place] Encounter for annual physical examination excluding gynecological examination in a patient older than 17 years (Primary Dx); Status post hysterectomy; Postmenopausal HRT (hormone replacement therapy) 05/10/2024 Telephone Family Medicine [facility] [address] [facility] [address] [place] [phone] Vaishali Veloz PA 05/07/2024 3:18 PM EST - 05/07/2024 11:59 PM EST [facility] [address] [place] [phone] Discharge Disposition: Home or Self Care 05/07/2024 3:18 PM EST - 05/07/2024 11:59 PM EST Hospital Encounter [facility] [place] [address] [place] [address] Discharge Disposition: Home or Self Care 05/07/2024 2:00 PM EST Office Visit Internal Medicine - [place] [address] [place] [id number] Vaishali Veloz PA Physical exam (Primary Dx); Recurrent sinusitis; Acute recurrent frontal sinusitis; Chronic neck and back pain; Acute neck pain; Tenderness over spine from Last 3 Months Immunizations Name Administration Dates Next Due Influenza Quadravalent, MDCK , 0.5ml, preservative free (Flucelvax) 6mo and older 02/15/2018 Moderna SARS-CoV-2 COVID-19, mRNA, LNP-S, preservative free 09/25/2020 Surgical History Surgery Date Site/Laterality Comments APPENDECTOMY 01/03/2001 PROCEDURE: HISTORICAL APPENDECTOMY PARTIAL HYSTERECTOMY 10/2012 PROCEDURE: NV SUPRACERVICAL ABDL HYSTER W/WO RMVL TUBE OVARY; COMMENT: supra-cervical for endometriosis OTHER SURGICAL HISTORY 1999 Right PROCEDURE: HISTORICAL ARM SURGERY; COMMENT: tendon and artery repair d/t trauma from dog BUNIONECTOMY 1995 Bilateral PROCEDURE: BUNION SURGERY, SIMPLE REMOVAL; COMMENT: L 1995, R 1979 OTHER SURGICAL HISTORY PROCEDURE: NV ARTHRD ANT INTERBODY MIN DSC CRV BELOW C2 GASTRIC BYPASS 12/2020 PROCEDURE: NV GASTRIC RSTCV W/BYP W/SM INT RCNSTJ LIMIT ABSRPJ BREAST BIOPSY 03/19/2020 Left PROCEDURE: BX BREAST; PERC NEEDLE CORE W/IMAG GUID; COMMENT: abcess BREAST SURGERY CHOLECYSTECTOMY Medical History Medical History Date Comments Restless leg syndrome DX:Restles s leg syndrome; COMMENT: ? early Parkinson's Anxiety 03/30/2017 DX:Anxiety Insomnia 04/03/2017 DX:Insomnia Major depression in partial remission (CMS/HCC) 03/30/2017 DX:Major depression in parti al remission (HCC) Obesity, morbid, BMI 40.0-49 .9 (CMS/HCC) 04/03/2017 DX:Obesity, morbid, BMI 40.0 -49.9 (HCC) Prediabetes 03/30/2017 DX:Prediabetes Vitamin D deficiency 04/25/2017 DX:Vitamin D deficiency Allergic rhinitis 04/25/2017 DX:Allergic rh initis Migraine 04/25/2017 DX:Migraine Urinary incontinence 04/25/2017 DX:Urinary incontinence; COMMENT: Mixed, urge and stress Leiomyoma of uterus 04/25/2017 DX:Leiomyoma of uterus S/P cervical spinal fusion 07/03/2018 DX:S/ P cervical spinal fusion Multiple thyroid nodules 07/03/2018 DX:Mult iple thyroid nodules SADIA (obstructive sleep apnea) DX :SADIA (obstructive sleep apnea); COMMENT: on CPAP Depression DX:Depression Osteoarthritis DX:Osteoarthriti s Steatosis of liver DX:Steatosis of liver Cataract HL (hearing loss) Pneumonia Urinary tract infection Visual impairment Family History Medical History Relation Name Comments Arthritis Brother 1 TR Early Brother 1 TR Heart disease Brother 1 TR Hypertension Brother 1 TR Other: valvular disease Brother 1 TR COPD Father Brendon Hearing loss Father Brendon Heart disease Father Brendon Parkinson's Disease Father Brendon [place], diab etes, macular degeneration Vision loss Father Brendon Depression Mother Marian Diabetes Mother Marian CAD, hyperchole sterolemia Mental illness Mother Marian Stroke Mother Marian Alcohol abuse Sister 2 Jolie Early Sister 2 Jolie Arthritis Sister 3 Jolie D Drug abuse Sister 3 Jolie D Relation Name Status Comments Brother 1 TR Alive Brother 2 Alive Brother 3 Alive Father Brendon Alive Mother Marian Alive Sister 1 Katie in infancy Sister 2 Jolie Alive Sister 3 Jolie D Alive Social History Tobacco Use Types Packs/Day Years Used Date Smoking Tobacco: Never Smokeless Tobacco: Never Tobacco Cessation:Counseling Given: Not Answered Alcohol Use Standard Drinks/Week Comments Not Currently 0 (1 standard drink = 0.6 oz pur e alcohol) Housing Instability Answer Date Recorde d Are you worried that in the next 2 months you may not have stable housing? No 05/13/2024 Food Access & Nutrition Answer Date Rec orded Do you have access to a vari ety of food including fruits and vegetables? Yes 05/13/2024 Access to Healthcare Answer Date Record ed Within the last 3 months, raul w many times did you visit the emergency department for your medical care? 0 05/13/2024 Health Literacy Answer Date Recorded How often do you need to hav e someone help you when you read instructions, pamphlets, or other written material from your doctor or pharmacy? Never 05/13/2024 Caregiver: How often do you need to have someone help you when you read instructions, pamphlets, or other written material from your doctor or pharmacy? Not on file 05/13/2024 Financial Risk Answer Date Recorded How hard is it for you to pa y for the very basics like food, housing, medical care, and air conditioning / heating? Not very hard 05/13/2024 Transportation Answer Date Recorded Has the lack of transportati on kept you from meetings, work, or from getting things needed for daily living? No Has the lack of transportati on kept you from medical appointments or from getting medications? No 05/13/2024 Social Isolation Answer Date Recorded How often do you feel lonely or isolated from th ose around you? Never 05/13/2024 Food Risk Answer Date Recorded Within the past 12 months we worried whether our food would run out before we got money to buy more. Never true 05/13/2024 Within the past 12 months th e food we bought just didn't last and we didn't have money to get more. Never true 05/13/2024 Dependent Care Answer Date Recorded Do you need help finding or paying for care for your loved ones. For example, child health associate or elderly care for an older adult? No 05/13/2024 Education Answer Date Recorded Do you think completing more education or training, like finishing a GED, going to college, or learning a trade, would be helpful for you? No 05/13/2024 Employment and Income Answer Date Recor ded During the last four weeks, have you been actively looking for work? No 05/13/2024 Living Situation Answer Date Recorded What is your living situation? 0 05/13/2024 Comments No Sex and Gender Information Value Date Recorded Sex Assigned at Female 05/07/2024 2:57 PM EST Legal Sex Female 3:26 PM EST Gender Identity Female 05/07/2024 2:57 PM EST Sexual Orientation Choose not to disclose 2024 2:57 PM EST Obstetrics History Para Term AB IAB SAB Ectopic Multiple Livin g Live Births 1 1 1 Date Outcome GA Total Labor Labor/2nd/3rd Weight Sex Type Anes PTL Linda A1 A5 Name Clin Term Last Filed Vital Signs Vital Sign Reading Time Taken Comments Blood Pressure 97/57 05/13/2024 1:59 PM EST Pulse 69 05/13/2024 1:59 PM EST Temperature 36.5 ??C (97.7 ??F) 05/07/2024 1:40 PM ES T Respiratory Rate - - Oxygen Saturation 98% 05/07/2024 1:40 PM EST Inhaled Oxygen Concentration - - Weight 85.3 kg (188 lb) 05/13/2024 1:59 PM EST Height 162.6 cm (5' 4 ) 05/07/2024 1:40 PM EST Body Mass Index 32.27 05/07/2024 1:40 PM EST Plan of Treatment Upcoming Encounters Date Type Department Care Team (Late st Contact Info) Description 11/04/2024 1:00 PM EDT Office Visit Internal Medicine - [place] [address] [place] [address] Vaishali Veloz PA [address] [place] [address] 12/19/2024 2:20 PM EDT Appointment Radiology Department - [address] [phone] Health Maintenance Due Date Last Done Comments DTaP,Tdap,and Td Vaccines (1 - Tdap) 02/04/1983 Pneumococcal Vaccine: 50+ Years (1 of 1 - PCV) 02/04/2014 Zoster Vaccines (1 of 2) 02/04/2014 Colorectal Cancer Screening: Stool Based Tests (FOBT/FIT) 04/09/2022 COVID-19 Vaccine ( season) 2023 04/16/2021, 09/25/2020, 08/28/2020 Influenza Vaccine (#1) 2023 02/15/2018 Depression Screening 05/07/2025 05/07/2024, 02/01/20 24 Social Influencers of Health Screening 05/13/2025 05/13/2024 Breast Cancer Screening 12/20/2025 12/21/19 24, 12/21/2023, 12/15/2023, Additional history exists Cervical Cancer Screening: HPV 07/13/2026 07/13/2021 Cholesterol Screening (Lipid Panel) 12/27/2027 12/26/2022 RSV Immunization Adult Patients (1 - 1-dose 75+ series) 02/04/2039 HIV Screening Completed 03/07/2019 Hepatitis C Screening Completed 03/07/2019 HIB Vaccines Aged Out No longer eligi ble based on patient's age to complete this topic HPV Vaccines Aged Out No longer eligi ble based on patient's age to complete this topic Hepatitis A Vaccines Aged Out No long er eligible based on patient's age to complete this topic Hepatitis B Vaccines Aged Out No long er eligible based on patient's age to complete this topic IPV Vaccines Aged Out No longer eligi ble based on patient's age to complete this topic MMR Vaccines Aged Out No longer eligi ble based on patient's age to complete this topic Meningococcal ACWY Vaccine Aged Out N o longer eligible based on patient's age to complete this topic Meningococcal B Vaccine Aged Out No l onger eligible based on patient's age to complete this topic Pneumococcal Vaccine: Pediatrics (0 to 5 Years) and At-Risk Patients (6 to 64 Years) Aged Out No longer eligible based on patient's age to complete this topic RSV Immunization Patients Under 20 months Aged Out No longer eligible based on patient's age to complete this topic Varicella Vaccines Aged Out No longer eligible based on patient's age to complete this topic Procedures Procedure Name Priority Date/Time Associated Diagnosis Comments XR THORACIC SPINE 2 VIEWS Routine 05/07/2024 3:24 PM EST Tenderness over spine XR CERVICAL SPINE 2-3 VIEWS Routine 05/07/2024 3:24 PM EST Acute neck pain DEPRESSION SCREENING Routine 02/01/2024 DIAGNOSTIC MAMMOGRAPHY INCLUDING CAD BILATERAL Routine 12/21/2023 3:12 PM EDT Other abnormal and inconclusive findings on diagnostic imaging of breast LIPID PANEL Routine 12/26/2022 HPV Routine 07/13/2021 HEPATITIS C SCREENING Routine 03/07/2019 HIV SCREENING Routine 03/07/2019 from Last 3 Months or Most Recently Relevant to Health Maintenance Results * XR Thoracic Spine 2 Views (05/07/2024 3:24 PM EST) Anatomical Region Laterality Modality Spine, T-spine Radiographic Margarita ging 05/09/2024 3:40 PM EST Impressions 05/09/2024 3:41 PM EST Impression: Mild sigmoidal shaped scoliotic curvature of the thoracic spine. ??No compression fracture deformities. ??Mild to moderate spondylosis. Report reviewed and signed by : Dr. Nelson Contreras on 05/09/2024 3:41 PM. Workstation Name - [id number] -------- FINAL REPORT -------- Dictated By: Nelson Contreras Dictated Date: 05/09/2024 15:40 ET Assigned Physician: Nelson Contreras Reviewed and Electronically Signed By: Nelson Contreras Signed Date: 05/09/2024 15:41 ET Workstation ID: [id number] Transcribed By: Self Edit Transcribed Date: 05/09/2024 15:40 ET Narrative 05/09/2024 3:41 PM EST Reason for exam: Bony tenderness. Technique: Thoracic spine radiograph, frontal and lateral views, 2 views. Comparison: ??None. Findings: Mild to moderate multilevel disc space narrowing noted with endplate osteophyte formation. ??No compression fractures are seen. ??There is a mild sigmoidal shaped scoliotic curvature of the thoracic spine. ??Surgical clips visible in the left upper quadrant the abdomen. Procedure Note Nelson Contreras MD - 05/09/2024 Reason for exam: Bony tenderness. Technique: Thoracic spine radiograph, frontal and lateral views, 2views. Comparison: None. Findings: Mild to moderate multilevel disc space narrowing noted with endplateosteophyte formation. No compression fractures are seen. There is a mildsigmoidal shaped scoliotic curvature of the thoracic spine. Surgicalclips visible in the left upper quadrant the abdomen. IMPRESSION: Impression: Mild sigmoidal shaped scoliotic curvature of the thoracic spine. Nocompression fracture deformities. Mild to moderate spondylosis. Report reviewed and signed by : Dr. Nelson Contreras on 05/09/2024 3:41 PM.Workstation Name - [id number] -------- FINAL REPORT -------- Dictated By: Nelson Contreras Dictated Date: 05/09/2024 15:40 ET Assigned Physician: Nelson Contreras Reviewed and Electronically Signed By: Nelson Contreras Signed Date: 05/09/2024 15:41 ET Workstation ID: [id number] Transcribed By: Self Edit Transcribed Date: 05/09/2024 15:40 ET us Vaishali LUCAS IMG XR PROCEDURES Final R esult * XR Cervical Spine 2-3 Views (05/07/2024 3:24 PM EST) Anatomical Region Laterality Modality Spine, C-spine Radiographic Margarita ging 05/09/2024 11:5 9 AM EST Impressions 05/09/2024 12:00 PM EST Impression: Normal anatomic alignment, status post previous anterior cervical discectomies and fusion with hardware instrumentation from the C4 through the C7 levels. ??Bulky anterior endplate spurring at the C3-C4 level. ??Otherwise, no acute radiographic abnormality. Report reviewed and signed by : Dr. Nelson Contreras on 05/09/2024 12:00 PM. Workstation Name - [id number] -------- FINAL REPORT -------- Dictated By: Nelson Contreras Dictated Date: 05/09/2024 11:59 ET Assigned Physician: Nelson Contreras Reviewed and Electronically Signed By: Nelson Contreras Signed Date: 05/09/2024 12:00 ET Workstation ID: [id number] Transcribed By: Self Edit Transcribed Date: 05/09/2024 11:59 ET Narrative 05/09/2024 12:00 PM EST Reason for Exam: ??Neck pain after fall. Technique: Cervical spine radiographs, multiple views. Comparison: ?? None Findings: The patient is status post previous multilevel anterior cervical discectomies and fusion with hardware instrumentation from the C4 through the C7 levels. ??Alignment is anatomic. ??No hardware fracture identified. Bulky anterior endplate spurring noted at the C3-C4 level. ??The atlantoaxial articulation is maintained. ??The prevertebral soft tissues otherwise appear normal. ??The lung apices are grossly clear. Procedure Note Nelson Contreras MD - 05/09/2024 Reason for Exam: Neck pain after fall. Technique: Cervical spine radiographs, multiple views. Comparison: None Findings: The patient is status post previous multilevel anterior cervicaldiscectomies and fusion with hardware instrumentation from the C4 throughthe C7 levels. Alignment is anatomic. No hardware fracture identified. Bulky anterior endplate spurring noted at the C3-C4 level. Theatlantoaxial articulation is maintained. The prevertebral soft tissuesotherwise appear normal. The lung apices are grossly clear. IMPRESSION: Impression: Normal anatomic alignment, status post previous anterior cervicaldiscectomies and fusion with hardware instrumentation from the C4 throughthe C7 levels. Bulky anterior endplate spurring at the C3-C4 level.Otherwise, no acute radiographic abnormality. Report reviewed and signed by : Dr. Nelson Contreras on 05/09/2024 12:00 PM.Workstation Name - [id number] -------- FINAL REPORT -------- Dictated By: Nelson Contreras Dictated Date: 05/09/2024 11:59 ET Assigned Physician: Nelson Contreras Reviewed and Electronically Signed By: Nelson Contreras Signed Date: 05/09/2024 12:00 ET Workstation ID: [id number] Transcribed By: Self Edit Transcribed Date: 05/09/2024 11:59 ET Vaishali LUCAS IMG XR PROCEDURES Final R esult * Depression Screening (02/01/2024) Depression Screening abstracted Historical Provider HEALTH MAINTENANCE Final Result * DIAGNOSTIC MAMMOGRAPHY INCLUDING CAD BILATERAL (12/21/2023 3:12 PM EDT) Anatomical Region Laterality Modality Mammography 12/18/2023 8:34 AM EDT Narrative 12/21/2023 3:22 PM EDT This is a summary report. The complete report is available in the patient's medical record. If you cannot access the medical record, please contact the sending organization for a detailed fax or copy. History: Callback from screening for bilateral asymmetric opacities Study: Bilateral diagnostic mammography with tomosynthesis and CAD Technique: Bilateral digital diagnostic mammography is obtained and read in conjunction with computer aided detection. ??Tomosynthesis as well as 2D C-View imaging were obtained. ??Spot compression tomosynthesis images were also obtained. Comparison: Comparison made to multiple priors, most recent December 15, 2023, and most remote January 26, 2018. Breast composition: The breast tissue is heterogeneously dense, which may obscure small masses. Right breast: Previously suggested asymmetry in the lower breast approximately 2 cm from the nipple on the MLO view is pliable on today's images and local parenchyma has similar appearance to multiple priors studies. ??This most likely represented overlapping fibroglandular breast tissue. ??No suspicious mass. Left breast: Previously suggested asymmetry in the retroareolar plane at 2 cm from the nipple on the MLO view is pliable on today's images and the local parenchyma has similar appearance of to multiple prior studies. ??This most likely represented overlapping fibroglandular breast tissue. ??No suspicious mass. IMPRESSION: Impression: Right breast: Negative, no specific mammographic evidence of malignancy. ??Normal interval follow-up is recommended in 12 months. Left breast: Negative, no specific mammographic evidence of malignancy. ??Normal interval follow-up is recommended in 12 months. BI-RADS: Category 1: Negative Findings and recommendations discussed with the patient at completion of the study. Procedure Note Yung Dimas MD - 02/14/2024 This is a summary report. The complete report is available in thepatient's medical record. If you cannot access the medical record, pleasecontact the sending organization for a detailed fax or copy. History: Callback from screening for bilateral asymmetric opacities Study: Bilateral diagnostic mammography with tomosynthesis and CAD Technique: Bilateral digital diagnostic mammography is obtained and readin conjunction with computer aided detection. Tomosynthesis as well as 2DC-View imaging were obtained. Spot compression tomosynthesis images werealso obtained. Comparison: Comparison made to multiple priors, most recent November, and most remote January 26, 2018. Breast composition: The breast tissue is heterogeneously dense, which mayobscure small masses. Right breast: Previously suggested asymmetry in the lower breastapproximately 2 cm from the nipple on the MLO view is pliable on today'simages and local parenchyma has similar appearance to multiple priorsstudies. This most likely represented overlapping fibroglandular breasttissue. No suspicious mass. Left breast: Previously suggested asymmetry in the retroareolar plane at 2cm from the nipple on the MLO view is pliable on today's images and thelocal parenchyma has similar appearance of to multiple prior studies.This most likely represented overlapping fibroglandular breast tissue. Nosuspicious mass. IMPRESSION: Impression: Right breast: Negative, no specific mammographic evidence of malignancy.Normal interval follow-up is recommended in 12 months. Left breast: Negative, no specific mammographic evidence of malignancy.Normal interval follow-up is recommended in 12 months. BI-RADS: Category 1: Negative Findings and recommendations discussed with the patient at completion ofthe study. Result [facility] Polly Ramirez MD IMG BI PROCEDURES Final R esult * (ABNORMAL) Lipid panel (12/26/2022) [facility] LDL/HDL Ratio 3 0 - 4 Triglycerides 46 0 - 150 mg/dL Cholesterol 216(A) 0 - 200 mg/dL HDL 85 >=40 mg/dL LDL Cholesterol 122(A) 0 - 100 mg/dL Blood Venous blood specimen / Unknown Result [facility] Provider LAB BLOOD ORDERABLES Hanna l Result * Cervical Cancer Screening: HPV (07/13/2021) [facility] Cervical Cancer Screening: HPV abstracted, negative Result [facility] Edson [facility] HEALTH MAINTENANCE Final Result * HIV Screening (03/07/2019) [facility] HIV Screening abstracted Result [facility] Provider HEALTH MAINTENANCE Final Result * Hepatitis C Screening (03/07/2019) [facility] Hepatitis C Screening abstracted us Historical Provider HEALTH MAINTENANCE Final Result from Last 3 Months or Most Recently Relevant to Health Maintenance Insurance [employer] Care Teams Tile Presser Relationship Specialty Start Date End Date Vaishali Veloz PA PCP - General Family Medicine 04/01/24
== END 2024-08-05 12:17 | disposition home or self-care (01) ==
LOC: HO.HBS 12:10
PROVIDERS: PCP Internal Medicine; Visit Provider Physician Assistant Surgical
DX: E66.811 Obesity, class 1 (principal); Z68.32 Body mass index [BMI] 32.0-32.9, adult; Z90.3 Acquired absence of stomach [part of]; Z98.84 Bariatric surgery status
CPT/HCPCS: 99214

== ENCOUNTER 2024-09-18 12:08 | Outpatient (AMB) | payer OTHER, SELFPAY ==
--- NOTE | 2024-09-18 12:00 | MHC.OFFVISWM ---
VS Expanded 09/18/24 12:06 Height 5 ft 4 in Weight 172 lb 4 oz BMI 29.6 Intake Visit Reasons: TELEPHONE PO LSG 01/07/21 Allergies Seasonal Allergies Allergy (Severe, Verified 07/09/21 12:58) Anaphylaxis clarithromycin [From Biaxin] Allergy (Verified 07/09/21 12:58) nausea Medication List - Last Reconciled 09/18/24 by LANCE Martin multivitamin 1 tab PO DAILY ondansetron 4 mg PO Q8H PRN thiamine HCl (vitamin B1) 100 mg PO DAILY valacyclovir 500 mg PO DAILY vit C,C-Eo-lcgxf-lutein-zeaxan 250-90-40-1 mg (PreserVision AREDS-2) 1 tab PO BID vitamin A palmitate 10,000 units PO DAILY vortioxetine (Trintellix) 10 mg PO DAILY Zepbound (tirzepatide (weight loss)) 2.5 mg (0.5 mL) subcut QWEEK NS HPI Comments Details: This?is a?59?yo F who is s/p LSG 01/07/2021. Weight at last visit on 08/05/2024 was 190, weight today is 172.6 pounds, representing a 17.4 pound weight loss with a BMI today of 29.6.? Having some GI side effects, wants to reduce Zepbound dose. I have no desire to eat Present meal plan includes: at last visit- 1 fairlife shake, 1 kinyarwanda yogurt, 1 meal of 2-3oz protein, 1 additional meal with ~15g protein (like 2 eggs) taking I [facility] Medical History BMI 37.0-37.9, adult Cholecystectomy planned Depression Genital herpes GERD (gastroesophageal reflux disease) Hypersomnolence Liver fibrosis Obesity, Class II, BMI 35-39.9 SADIA (obstructive sleep apnea) Osteoarthritis Sleep apnea with use of continuous positive airway pressure (CPAP) Snoring Steatosis, liver Surgical History History of bunionectomy History of partial hysterectomy History of surgery on arm Hx of appendectomy Hx of breast surgery Hx of spinal surgery Family History Mother No problems noted. Father Heart disease Hearing loss Parkinson disease Sister No problems noted. Sister No problems noted. Sister No problems noted. Brother Heart disease Brother No problems noted. Brother Heart disease Arthritis Social History Household Members: Significant Other Housing: House Do you presently have visiting nurse or other home services: No Alcohol intake: current Alcohol intake frequency: holidays/special occasions only Patient Tobacco Use Status: Never used Tobacco Tobacco use type: Cigarette Telehealth Telehealth Telehealth Platform: Telephone Location of provider rendering services: other Location of patient: address on file Patient Identification confirmed using: Name, : Yes Telehealth method: voice only Patient verbally consented to treatment: Yes Patient verbally consented to billing insurance company: Yes Patient informed of any privacy concerns related to visit: Yes Minutes spent on Phone/Video with Pt.: 16 Assessment & Plan Assessment & Plan (1) S/P laparoscopic sleeve gastrectomy: Code(s): Z98.84 - Bariatric surgery status Category: Surgical (2) Overweight: Code(s): E66.3 - Overweight Category: Medical Plan Pt would like to reduce dose to 2.5mg Zepbound, feels GI side effects were much more tolerable at this dose. She is concerned that 5mg would limit her ability to get adequate protein intake. Her insurance is changing October 29, may not be covered any more or may need another prior auth. RTC 3mo. Medications: New Zepbound (tirzepatide (weight loss)) for 4 weeks 2.5 mg (0.5 mL) subcut QWEEK 2 mL 0RF NS Discontinued Zepbound (tirzepatide (weight loss)) Discontinued Reason: Doctor's Order 5 mg (0.5 mL) subcut QWEEK 2 mL 0RF NS
[2024-09-18 12:06] VITALS: BMI 29.6
--- OUTSIDE RECORDS SUMMARY | 2024-09-18 13:06 | XMS_ITS ---
Author Name [facility] Organization Unknown History of Medication Use Medication Directions Dispensed Refills Start Date End Date Stat us doxycycline (VIBRAMYCIN) 100 mg capsule Take 1 capsule (100 mg total) by mouth 2 (two) times a day for 7 days. Take with at least 8 ounces (large glass) of water, do not lie down for 30 minutes after 05/07/2024 05/15/2024 active estradioL (ESTRACE) 1 mg tablet TAKE 1 TABLET BY MOUTH EVERY DAY 04/08/2024 active amoxicillin-clavulana te (AUGMENTIN) 875-125 mg per tablet Take 1 tablet by mouth 2 (two) times a day for 7 days. 04/01/2024 04/09/2024 active fluticasone propionate (FLONASE) 50 mcg/actuation nasal spray USE 2 SPRAYS IN NOSTRILS DAILY X1 WEEK THEN 1-2 SPRAYS DAILY. USE LOWEST POSSIBLE DOSE AFTER WEEK 1 02/08/2024 active fluticasone propionate (FLONASE) 50 mcg/actuation nasal spray USE 2 SPRAYS IN NOSTRILS DAILY X1 WEEK THEN 1-2 SPRAYS DAILY. USE LOWEST POSSIBLE DOSE AFTER WEEK 1 02/08/2024 active vortioxetine (Trintellix) 10 mg tablet Take 1 tablet (10 mg total) by mouth 1 (one) time each day. 02/02/2024 active estradioL (ESTRACE) 1 mg tablet TAKE 1 TABLET BY MOUTH EVERY DAY 12/21/2023 active valACYclovir (VALTREX) 500 mg tablet Take 1 tablet (500 mg total) by mouth 1 (one) time each day. 12/21/2023 active valACYclovir (VALTREX) 500 mg tablet Take 1 tablet (500 mg total) by mouth 1 (one) time each day. 12/21/2023 active ergocalciferol (VITAMIN D-2) 1,250 mcg (50,000 unit) capsule Take 1 Capsule by mouth once a week. 08/09/2023 active tretinoin (RETIN-A) 0.025 % cream APPLY ON AFFECTED AREA DAILY 06/14/2023 active tretinoin (RETIN-A) 0.025 % cream APPLY ON AFFECTED AREA DAILY 06/14/2023 active albuterol HFA (PROAIR HFA ; PROVENTIL HFA ; VENTOLIN HFA) 90 mcg/actuation inhaler TAKE 2 PUFFS (INHALATION) EVERY 6 HOURS (SHORTNESS OF BREATH OR WHEEZING) FOR 10 DAYS 05/16/2023 active acetaminophen (TYLENOL) 500 mg tablet Take 1 tablet (500 mg total) by mouth every 6 (six) hours if needed. active thiamine 100 mg tablet Take 1 tablet (100 mg total) by mouth 1 (one) time each day. active vitamin A 3,000 mcg (10,000 unit) capsule Take 1 capsule (10,000 Units total) by mouth 1 (one) time each day. active Problems Problem Status Onset Date Problem Type Date of Resolution Source Insomnia active 2017-04-03 ProblemAct [facility] Migraine active 2017-04-25 ProblemAct [facility] Restless leg syndrome active 2017-03-30 ProblemAct [facility] Vitamin D deficiency active 2017-04-25 ProblemAct [facility] Interstitial cystitis active 2017-05-14 ProblemAct [facility] History of sleeve gastrectomy active 2021-02-24 ProblemAct [facility] Multiple thyroid nodules active 2018-07-03 ProblemAct [facility] Leiomyoma of uterus active 2017-04-25 ProblemAct [facility] Anxiety active 2017-03-30 ProblemAct [facility] Cervical spinal stenosis active 2018-06-26 ProblemAct [facility] Moderate episode of recurrent major depressive disorder active 2021-02-24 ProblemAct [facility] Encounter for screening mammogram for breast cancer active EncounterDiagnosisAct [facility] Allergic rhinitis active 2017-04-25 ProblemAct [facility] Prediabetes active 2017-03-30 ProblemAct [facility] ANJ[facility] HSV (herpes simplex virus) anogenital infection active 2019-03-06 ProblemAct [facility] Urinary incontinence active 2017-04-25 ProblemAct [facility] Immunizations Vaccine Date Source Lot Number Status Moderna SARS-CoV-2 COVID-19, mRNA, LNP-S, preservative free 09/25/2020 [facility] completed Influenza Quadravalent, MDCK , 0.5ml, preservative free (Flucelvax) 6mo and older 02/15/2018 [facility] [id number] completed Encounters Encounter Type Encounter Reason Primary Diagnosis Location Date Ambulatory Cervicalgia Cervicalgia [facility] 05/13/2024 Ambulatory Dorsalgia, unspecified Dorsalgia, unspecified [facility] 05/13/2024 Ambulatory [facility] 05/07/2024 Ambulatory [facility] 05/07/2024 Ambulatory Annual Exam Encounter for ge neral adult medical examination without abnormal findings [facility] 05/07/2024 Ambulatory new patient Persons [facility] in other specified circumstances [facility] 04/01/2024 Care Team Organization Name Specialty Phone Email Start Date End Da te [facility] 05/11/2024 [facility] 05/07/2024 [facility] 04/05/2024 [facility] 04/01/2024
--- OUTSIDE RECORDS SUMMARY | 2024-09-18 13:06 | XMS_ITS | Clinical Summary ---
Author Organization [facility] [address] [facility] Address [address] [place] [address] Phone Care Team Providers Care Radio Television Announcer Name Role Phone Vaishali Veloz Primary Care Provider [phone] Allergies Active Allergy Reactions Criticality Noted Date [...] Noted Date Diagnosed Date Moderate episode of recurren t major depressive disorder (CMS/HCC V24, CMS/HCC V28) 02/24/2021 History of sleeve gastrectomy 02/24/2021 HSV [...] 03/30/2017 Prediabetes 03/30/2017 Restless leg syndrome 03/30/2017 Immunizations Name Administration Dates Next Due Influenza Quadravalent, MDCK , 0.5ml, preservative free (Flucelvax) 6mo and older 02/15/2018 Moderna SARS-CoV-2 COVID-19, mRNA, LNP-S, preservative free 09/25/2020 Surgical History Surgery Date Site/Laterality Comments APPENDECTOMY 01/03/2001 PROCEDURE: HISTORICAL APPENDECTOMY PARTIAL HYSTERECTOMY 10/2012 PROCEDURE: ID SUPRACERVICAL ABDL HYSTER W/WO RMVL TUBE OVARY; COMMENT: supra-cervical for endometriosis OTHER SURGICAL HISTORY 1999 Right PROCEDURE: HISTORICAL ARM SURGERY; COMMENT: tendon and artery repair d/t trauma from dog BUNIONECTOMY 1995 Bilateral PROCEDURE: BUNION SURGERY, SIMPLE REMOVAL; COMMENT: L 1995, R 1979 OTHER SURGICAL HISTORY PROCEDURE: ID ARTHRD ANT INTERBODY MIN DSC CRV BELOW C2 GASTRIC BYPASS 12/2020 PROCEDURE: ID GASTRIC RSTCV W/BYP W/SM INT RCNSTJ LIMIT ABSRPJ BREAST BIOPSY 03/19/2020 Left PROCEDURE: BX BREAST; PERC NEEDLE CORE W/IMAG GUID; COMMENT: abcess BREAST SURGERY CHOLECYSTECTOMY Medical History Medical History Date Comments Restless leg syndrome DX:Restles s leg syndrome; COMMENT: ? early Parkinson's Anxiety 03/30/2017 DX:Anxiety Insomnia 04/03/2017 DX:Insomnia Major depression in partial remission (CMS/HCC V24) 03/30/2017 DX:Major depression in parti al remission (HCC) Obesity, morbid, BMI 40.0-49 .9 (CMS/HCC V24, CMS/HCC V28) 04/03/2017 DX:Obesity, morbid, BMI 40.0 -49.9 ([facility]) Prediabetes 03/30/2017 DX:Prediabetes Vitamin D deficiency 04/25/2017 [...] disease Father Brendon Parkinson's Disease Father Brendon [place], diab etes, macular degeneration Vision loss Father [...] Record ed Within the last 3 months, ho w many times did you visit the [...] care for your loved ones. For example, exceptional children teacher assistant or elderly care for an older adult? [...] Female 05/07/2024 2:57 PM EST Sexual Orientation Straight 08/21/2024 3: 22 PM EDT Obstetrics History Para Term AB IAB SAB [...] Care Team (Late st Contact Info) Description 09/27/2024 1:30 PM EDT Office Visit [facility] [address] [place] [phone] Vaishali Veloz PA [address] [place] [address] 11/04/2024 1:00 PM EDT Office Visit Internal Medicine - [place] [address] [place] [phone] Vaishali Veloz PA [address] [place] [address] 12/19/2024 2:20 PM EDT Appointment Radiology Department [address] [phone] Health Maintenance Due Date Last Done Comments DTaP,Tdap,and Td Vaccines (1 - Tdap) 02/04/1983 Pneumococcal Vaccine: 50+ Years (1 of 1 - PCV) 02/04/2014 Zoster Vaccines (1 of 2) 02/04/2014 Colorectal Cancer Screening: Stool Based Tests (FOBT/FIT) 04/09/2022 COVID-19 Vaccine ( season) 2023 04/16/2021, 09/25/2020, 08/28/2020 Influenza Vaccine (Season Ended) 2024 02/15/2018 Depression Screening 05/07/2025 05/07/2024, 02/01/20 24 [...] Procedure Name Priority Date/Time Associated Diagnosis Comments DEPRESSION SCREENING Routine 02/01/2024 DIAGNOSTIC MAMMOGRAPHY INCLUDING CAD BILATERAL Routine 12/21/2023 3:12 PM EDT Other abnormal and inconclusive findings on diagnostic imaging of breast LIPID PANEL Routine 12/26/2022 HPV Routine 07/13/2021 HEPATITIS C SCREENING Routine 03/07/2019 HIV SCREENING Routine 03/07/2019 from Last 3 Months or Most Recently Relevant to Health Maintenance Results * Depression Screening (02/01/2024) Depression Screening abstracted Historical Provider MD HEALTH MAINTENANCE Final Result * DIAGNOSTIC MAMMOGRAPHY [...] the patient at completion ofthe study. Result [facility] Polly Ramirez MD IMG BI PROCEDURES Final R esult * (ABNORMAL) Lipid panel (12/26/2022) [facility] LDL/HDL Ratio 3 0 - 4 Triglycerides 46 0 - 150 mg/dL Cholesterol 216(A) 0 - 200 mg/dL HDL 85 >=40 mg/dL LDL Cholesterol 122(A) 0 - 100 mg/dL Blood Venous blood specimen / Unknown Result [facility] Provider LAB BLOOD ORDERABLES Hanna l Result * Cervical Cancer Screening: HPV (07/13/2021) [facility] Cervical Cancer Screening: HPV abstracted, negative Result [facility] Provider HEALTH MAINTENANCE Final Result * HIV Screening (03/07/2019) [facility] HIV Screening abstracted Result [facility] Provider HEALTH MAINTENANCE Final Result * Hepatitis C Screening (03/07/2019) [facility] Hepatitis C Screening abstracted Result [facility] Provider HEALTH MAINTENANCE Final Result from Last 3 Months or Most Recently Relevant to Health Maintenance Insurance [employer] Care Teams Radio Television Announcer Relationship Specialty Start Date End Date Vaishali Veloz PA PCP - General Family Medicine 04/01/24
== END 2024-09-18 12:32 | disposition home or self-care (01) ==
LOC: HO.HBS 12:08
PROVIDERS: PCP Internal Medicine; Visit Provider Physician Assistant Surgical
DX: E66.3 Overweight (principal); Z68.29 Body mass index [BMI] 29.0-29.9, adult; Z90.3 Acquired absence of stomach [part of]; Z98.84 Bariatric surgery status
CPT/HCPCS: 98012

== ENCOUNTER → 2024-09-18 12:08 | Outpatient (BNVA) | payer OTHER, SELFPAY | PROVIDERS: PCP Internal Medicine; Visit Provider Physician Assistant Surgical ==

== ENCOUNTER 2025-02-24 12:31 | Outpatient (AMB) | payer OTHER, SELFPAY ==
--- NOTE | 2025-02-24 12:21 | MHC.OFFVISWM ---
VS Expanded 02/24/25 12:22 Height 5 ft 4 in Weight 170 lb 8 oz BMI 29.3 Body Fat % 37.8 Intake Visit Reasons: TELEPHONE PO LSG 01/07/21 Allergies Seasonal Allergies Allergy (Severe, Verified 07/09/21 12:58) Anaphylaxis clarithromycin (From Biaxin) Allergy (Verified 07/09/21 12:58) nausea Medication List - Last Reconciled 02/24/25 by LANCE Martin multivitamin 1 tab PO DAILY ondansetron 4 mg PO Q8H PRN semaglutide (weight loss) (Wegovy) 0.5 mg (0.5 mL) subcut QWEEK thiamine HCl (vitamin B1) 100 mg PO DAILY valacyclovir 500 mg PO DAILY vit C,I-Yb-izdfv-lutein-zeaxan 250-90-40-1 mg (PreserVision AREDS-2) 1 tab PO BID vitamin A palmitate 10,000 units PO DAILY vortioxetine (Trintellix) 10 mg PO DAILY HPI Comments Details: This is a 60 yo F who is s/p LSG 01/07/2021. Weight at last visit on 09/18/2024 was 172.4, weight today is 170.8 pounds, representing a 1.6 pound weight loss with a BMI today of 29.5. Now on Wegovy 0.25mg, did not increase to 0.5mg was previously on Zepbound. Reports the side effects are worse and taking every 2-2.5 weeks. Experiences nausea and constipation. Has been taking fiber chews and laxative type OTC med. She reports she sometimes drinks milk, has protein pancakes. Dairy will cause her symptoms to worsen. She claims she is trying to eat high protein but not following a structured meal plan. She had been given the info for [employer] ramon but reports she did not follow a plan here. Present meal plan includes: at last visit- 1 fairlife shake, 1 welsh yogurt, 1 meal of 2-3oz protein, 1 additional meal with ~15g protein (like 2 eggs) taking I [facility] Medical History BMI 37.0-37.9, adult Cholecystectomy planned Depression Genital herpes GERD (gastroesophageal reflux disease) Hypersomnolence Liver fibrosis Obesity, Class II, BMI 35-39.9 SADIA (obstructive sleep apnea) Osteoarthritis Sleep apnea with use of continuous positive airway pressure (CPAP) Snoring Steatosis, liver Surgical History History of bunionectomy History of partial hysterectomy History of surgery on arm Hx of appendectomy Hx of breast surgery Hx of spinal surgery Family History Mother No problems noted. Father Heart disease Hearing loss Parkinson disease Sister No problems noted. Sister No problems noted. Sister No problems noted. Brother Heart disease Brother No problems noted. Brother Heart disease Arthritis Social History Household Members: Significant Other Housing: House Do you presently have visiting nurse or other home services: No Alcohol intake: current Alcohol intake frequency: holidays/special occasions only Patient Tobacco Use Status: Never used Tobacco Tobacco use type: Cigarette Telehealth Telehealth Telehealth Platform: Telephone Location of provider rendering services: practice address Location of patient: address on file Patient Identification confirmed using: Name, : Yes Telehealth method: voice only Patient verbally consented to treatment: Yes Patient verbally consented to billing insurance company: Yes Patient informed of any privacy concerns related to visit: Yes Minutes spent on Phone/Video with Pt.: 16 Assessment & Plan Assessment & Plan (1) S/P laparoscopic sleeve gastrectomy: Code(s): Z98.84 - Bariatric surgery status Category: Surgical (2) Overweight: Code(s): E66.3 - Overweight Category: Medical Plan Pt needs to improve hydration, cut out diet soda. She has not been following a good nutrition plan and I think this is contributing to her symptoms. I discussed the importance of following a structured meal plan and sent the [employer] info over. Can also use Miralax for constipation. Refilled Wegovy at 0.25mg. RTC 4 months. Medications: New semaglutide (weight loss) (Wegovy) administer weeks 1 through 4 of therapy 0.25 mg (0.5 mL) subcut QWEEK 2 mL 0RF Refilled ondansetron 4 mg PO Q8H PRN 10 tabs 1RF nausea and vomiting Discontinued semaglutide (weight loss) (Wegovy) administer weeks 5 through 8 of therapy Discontinued Reason: Doctor's Order 0.5 mg (0.5 mL) subcut QWEEK 2 mL 0RF
[2025-02-24 12:22] VITALS: BMI 29.3
--- OUTSIDE RECORDS SUMMARY | 2025-02-24 15:50 | XMS_ITS ---
Author Name [facility] Organization Unknown History of Medication Use Medication Directions Dispensed Refills Start Date End Date Stat Zepbound 2.5 mg/0.5 mL injection INJECT 2.5 MG (0.5 ML) SUBCUTANEOUSLY EVERY WEEK FOR 4 WEEKS 09/19/2024 active ondansetron ODT (ZOFRAN-ODT) 4 mg disintegrating tablet DISSOLVE 1 TABLET ORALLY EVERY 8 HOURS NEEDED FOR NAUSEA AND VOMITING 09/04/2024 active doxycycline (VIBRAMYCIN) 100 mg capsule Take 1 capsule (100 mg total) by mouth 2 (two) times a day for 7 days. Take with at least 8 ounces (large glass) of water, do not lie down for 30 minutes after 05/07/2024 5 active doxycycline (VIBRAMYCIN) 100 mg capsule Take 1 capsule (100 mg total) by mouth 2 (two) times a day for 7 days. Take with at least 8 ounces (large glass) of water, do not lie down for 30 minutes after 05/07/2024 5 active estradioL (ESTRACE) 1 mg tablet TAKE 1 TABLET BY MOUTH EVERY DAY 04/08/2024 active cefdinir (OMNICEF) 300 mg capsule Take 1 capsule (300 mg total) by mouth 2 (two) times a day for 5 days. 04/03/2024 4 active amoxicillin-clavulan ate (AUGMENTIN) 875-125 mg per tablet Take 1 tablet by mouth 2 (two) times a day for 7 days. 04/01/2024 4 active fluticasone propionate (FLONASE) 50 mcg/actuation nasal [...] 1 (one) time each day. 02/02/2024 active vortioxetine (Trintellix) 10 mg tablet Take [...] by mouth once a week. 08/09/2023 active ergocalciferol (VITAMIN D-2) 1,250 mcg (50,000 [...] BREATH OR WHEEZING) FOR 10 DAYS 05/16/2023 5 active albuterol HFA (PROAIR HFA ; PROVENTIL HFA ; VENTOLIN HFA) 90 mcg/actuation inhaler TAKE 2 PUFFS (INHALATION) EVERY 6 HOURS (SHORTNESS OF BREATH OR WHEEZING) FOR 10 DAYS 05/16/2023 active estradioL (ESTRACE) 0.01 % (0.1 mg/gram) vaginal cream Apply 1-2 gms twice wkly vaginally 01/16/2023 4 aborted thiamine 100 mg tablet Take 1 tablet (100 mg total) by mouth 1 (one) time each day. 5 active vitamin A 3,000 mcg (10,000 unit) capsule Take 1 capsule (10,000 Units total) by mouth 1 (one) time each day. 5 active latanoprost 0.005 % drops, emulsion Every Evening 5 aborted multivitamin (MULTIPLE VITAMINS ORAL) Take by mouth. 4 aborted acetaminophen (TYLENOL) 500 mg tablet Take 1 tablet (500 mg total) by mouth every 6 (six) hours if needed. active acetaminophen (TYLENOL) 500 mg tablet Take 1 tablet (500 mg total) by mouth every 6 (six) hours if needed. active thiamine 100 mg tablet Take 1 tablet (100 mg total) by mouth 1 (one) time each day. active vitamin A 3,000 mcg (10,000 unit) capsule Take 1 capsule (10,000 Units total) by mouth 1 (one) time each day. active Allergies Allergen Reaction Severity Comment Documented Date Source Status AMOXICILLIN-POT CLAVULANATE NAUSEA AND VOMITING 04/03/2024 [facility] active CLARITHROMYCIN DIZZINESS No reaction documented 04/25/2017 [facility] active Problems Problem Status Onset Date Problem Type Date of Resolution Source Interstitial cystitis active 2017-05-14 ProblemAct [facility] Restless leg syndrome active 2017-03-30 ProblemAct [facility] Cervical spinal stenosis active 2018-06-26 ProblemAct [facility] History of sleeve gastrectomy active 2021-02-24 ProblemAct [facility] Mild episode of recurrent major depressive disorder (CMS/HCC V24) active 2021-02-24 ProblemAct [facility] Vitamin D deficiency active 2017-04-25 ProblemAct [facility] Anxiety active 2017-03-30 ProblemAct [facility] Allergic rhinitis active 2017-04-25 ProblemAct [facility] Multiple thyroid nodules active 2018-07-03 ProblemAct [facility] Encounter for screening mammogram for breast cancer active EncounterDiagnosisAct [facility] HSV (herpes simplex virus) anogenital infection active 2019-03-06 ProblemAct [facility] Insomnia active 2017-04-03 ProblemAct [facility] Prediabetes active 2017-03-30 ProblemAct [facility] ANJ[facility] Urinary incontinence active 2017-04-25 ProblemAct [facility] Leiomyoma of uterus active 2017-04-25 ProblemAct [facility] Migraine active 2017-04-25 ProblemAct [facility] Moderate episode of recurrent major depressive disorder active 2021-02-24 ProblemAct [facility] Immunizations Vaccine Date Source Lot Number Status Moderna SARS-CoV-2 COVID-19, mRNA, LNP-S, preservative free 09/25/2020 [facility] [id number] completed Influenza Quadravalent, MDCK , 0.5ml, preservative free (Flucelvax) 6mo and older 02/15/2018 [facility] [id number] completed Encounters Encounter Type Encounter Reason Primary Diagnosis Location Date Ambulatory Follow-up Acute serous demian tis media, left ear [facility] 01/08/2025 Ambulatory Follow-up Follow-up [facility] 11/04/2024 Ambulatory Follow-up Encounter for ot her preprocedural examination [facility] 09/27/2024 Ambulatory Cervicalgia Cervicalgia [facility] 05/13/2024 Ambulatory Dorsalgia, unspecified Dorsalgia, unspecified [facility] 05/13/2024 Ambulatory [facility] 05/07/2024 Ambulatory [facility] 05/07/2024 Ambulatory Annual Exam Encounter for ge neral adult medical examination without abnormal findings [facility] 05/07/2024 [facility] 04/01/2024 Care Team Organization Name Specialty Phone Email Start Date End Da te [facility] 05/11/2024 [facility] 05/07/2024 [facility] 04/05/2024 [facility] 04/01/2024 [facility] Jo Burnette DO Primary Care 03/08/2022 08/12/2023
--- OUTSIDE RECORDS SUMMARY | 2025-02-24 15:50 | XMS_ITS | Clinical Summary ---
Author Organization [facility] [address] [facility] Address [address] [place] [address] Phone Care Team Providers Care Driver Examiner Name Role Phone Vaishali Veloz Primary Care Provider [phone] Allergies Active Allergy Reactions Criticality Noted Date Comments Amoxicillin-Pot Clavulanate Nausea And Vomiting 04/03/2024 Clarithromycin Nausea Only,Dizziness 04/25/2017 No reaction documented Medications acetaminophen (TYLENOL) 500 mg tablet Take 1 tablet (500 mg total) by mouth every 6 (six) hours if needed. Active estradioL (ESTRACE) 1 mg tablet Take 1 tablet (1 mg total) by mouth 1 (one) time each day. 90 tablet 3 5 Active valACYclovir (VALTREX) 500 mg tablet TAKE 1 TABLET BY MOUTH EVERY DAY 90 tablet 3 5 Active vortioxetine (Trintellix) 10 mg tablet Take 1 tablet (10 mg total) by mouth 1 (one) time each day. 90 tablet 1 5 Active semaglutide (Wegovy) 2.4 mg/0.75 mL injection pen Inject 2.4 mg under the skin every 7 (seven) days. Active fluticasone propionate (FLONASE) 50 mcg/actuation nasal sprayIndication s:Non-recurrent acute serous otitis media of left ear Administer 1 spray into each nostril 1 (one) time each day. Shake gently. Before first use, prime pump. After use, clean tip and replace cap. 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 (CMS/HCC V24) 02/24/2021 History of sleeve gastrectomy 02/24/2021 HSV (herpes simplex virus) anogenital infection 03/06/2019 Multiple thyroid nodules 07/03/2018 Cervical spinal stenosis 06/26/2018 Overview (02/21/2024): S/p discectomy and anterior cervical fusion Interstitial cystitis 05/14/2017 Allergic rhinitis 04/25/2017 Urinary incontinence 04/25/2017 Overview (02/21/2024): Mixed, urge and stress Vitamin D deficiency 04/25/2017 Insomnia 04/03/2017 Anxiety 03/30/2017 Prediabetes 03/30/2017 Restless leg syndrome 03/30/2017 Resolved Problems Problem Noted Date Diagnosed Date Resolved Date Leiomyoma of uterus 04/25/2017 11/05/19 25 Migraine 04/25/2017 11/04/2024 Encounters Date Type Department Care Team Description 01/08/2025 3:00 PM EDT Office Visit Internal Medicine - [facility] [address] [place] [id number] Vaishali Veloz PA Non-recurrent acute serous otitis media of left ear (Primary Dx) 01/04/2025 8:24 AM EDT - 01/04/2025 11:59 PM EDT Hospital Encounter Radiology Department - [address] [phone] Encounter for screening mammogram for breast cancer Discharge Disposition: Home or Self Care from Last 3 Months Immunizations Immunization Administration Dates Next Due Influenza Quadravalent, MDCK , 0.5ml, preservative free (Flucelvax) 6mo and older 02/15/2018 Moderna SARS-CoV-2 COVID-19, mRNA, LNP-S, preservative free 09/25/2020 Surgical History Surgery Date Site/Laterality Comments APPENDECTOMY 01/03/2001 PROCEDURE: HISTORICAL APPENDECTOMY PARTIAL HYSTERECTOMY 10/2012 PROCEDURE: AK SUPRACERVICAL ABDL HYSTER W/WO RMVL TUBE OVARY; COMMENT: supra-cervical for endometriosis OTHER SURGICAL HISTORY 1999 Right PROCEDURE: HISTORICAL ARM SURGERY; COMMENT: tendon and artery repair d/t trauma from dog BUNIONECTOMY 1995 Bilateral PROCEDURE: BUNION SURGERY, SIMPLE REMOVAL; COMMENT: L 1995, R 1979 OTHER SURGICAL HISTORY PROCEDURE: AK ARTHRD ANT INTERBODY MIN DSC CRV BELOW C2 GASTRIC BYPASS 12/2020 PROCEDURE: AK GASTRIC RSTCV W/BYP W/SM INT RCNSTJ LIMIT ABSRPJ BREAST BIOPSY 03/19/2020 Left PROCEDURE: BX BREAST; PERC NEEDLE CORE W/IMAG GUID; COMMENT: abcess BREAST SURGERY CHOLECYSTECTOMY Medical History Medical History Date Comments Restless leg syndrome DX:Restles s leg syndrome; COMMENT: ? early Parkinson's Anxiety 03/30/2017 DX:Anxiety Insomnia 04/03/2017 DX:Insomnia Major depression in partial remission ([facility] V24) 03/30/2017 DX:Major depression in parti al remission ([facility]) Obesity, morbid, BMI 40.0-49 .9 (CMS/HCC V24, CMS/HCC V28) 04/03/2017 DX:Obesity, morbid, BMI 40.0 -49.9 ([facility]) Prediabetes 03/30/2017 DX:Prediabetes Vitamin D deficiency 04/25/2017 [...] disease Father Brendon Parkinson's Disease Father Brendon ND, diab etes, macular degeneration Vision loss Father Brendon Depression Mother Marian Diabetes Mother Marian CAD, hyperchole sterolemia Mental illness Mother Marian Stroke Mother Marian Alcohol abuse Sister 2 Jolie Early Sister 2 Jolie Arthritis Sister 3 Jolie D Drug abuse Sister 3 Jolie D Breast cancer Neg Hx Relation Name Status Comments Brother 1 TR [...] ed Within the last 3 months, ho apryl many times did you visit the emergency [...] care for your loved ones. For example, early childhood worker or elderly care for an older adult? [...] Date Recorded What is your living situation? Unrecognized valu e 05/13/2024 Comments No Sex and Gender Information Value Date Recorded Sex Assigned at Female 05/07/2024 2:57 PM EST Legal Sex Female 3:26 PM EST Gender Identity Female 05/07/2024 2:57 PM EST Sexual Orientation Straight 08/21/2024 3: 22 PM EDT Obstetrics History Para Term AB IAB SAB Ectopic Multiple Livin g Live Births 2 2 2 2 Date Outcome GA Total Labor Labor/2nd/3rd Weight Sex Type Anes PTL Linda A1 A5 Name Clin Term Term Last Filed Vital Signs Vital Sign Reading Time Taken Comments Blood Pressure 101/61 01/08/2025 2:50 PM EDT Pulse 56 01/08/2025 2:50 PM EDT Temperature 36.7 C (98 F) 01/08/2025 2:50 PM EDT Respiratory Rate - - Oxygen Saturation 98% 01/08/2025 2:50 PM EDT Inhaled Oxygen Concentration - - Weight 77 kg (169 lb 12.8 oz) 01/08/2025 2:50 PM EDT Height 165.1 cm (5' 5 ) 01/08/2025 2:50 PM EDT Body Mass Index 28.26 01/08/2025 2:50 PM EDT Plan of Treatment Upcoming Encounters Date Type Department Care Team (Late st Contact Info) Description 05/09/2025 1:30 PM EST Office Visit Internal Medicine - [facility] [address] [place] [phone] Vaishali Velzo PA [address] [place] [address] Health Maintenance Due Date Last Done Comments DTaP,Tdap,and Td Vaccines (1 - Tdap) 02/04/1983 Pneumococcal Vaccine: 50+ Years (1 of 1 - PCV) 02/04/2014 Zoster Vaccines (1 of 2) 02/04/2014 COVID-19 Vaccine (4 - season) 2024 04/16/2021, 09/25/2020, 08/28/2020 Influenza Vaccine (#1) 2024 02/15/2018 Social Influencers of Health Screening 05/13/2025 05/13/2024 Cervical Cancer Screening: HPV 07/13/2026 07/13/2021 Breast Cancer Screening 01/04/2027 01/05/20 25, 12/21/2023, 12/21/2023, Additional history exists Cholesterol Screening (Lipid Panel) 12/27/2027 12/26/2022 Colorectal Cancer Screening: Colonoscopy 07/20/2033 07/21/2023 RSV Immunization Adult Patients (1 - 1-dose 75+ series) 02/04/2039 HIV Screening Completed 03/07/2019 Hepatitis C Screening Completed 03/07/2019 Colorectal Cancer Screening: Stool Based Tests (FOBT/FIT) Discontinued 07/21/2023 Depression Screening Completed 05/07/2024, 02/01/20 24 HIB Vaccines Aged Out No longer eligi [...] Procedure Name Priority Date/Time Associated Diagnosis Comments MG MAMMO DIGITAL SCREENING W JETT BILAT Routine 01/04/2025 8:41 AM EDT Encounter for screening mammogram for breast cancer DEPRESSION SCREENING Routine 02/01/2024 LIPID PANEL Routine 12/26/2022 HPV Routine 07/13/2021 HEPATITIS C SCREENING Routine 03/07/2019 HIV SCREENING Routine 03/07/2019 from Last 3 Months or Most Recently Relevant to Health Maintenance Results * MG Mammo Digital Screening w Jett bilat (01/04/2025 8:41 AM EDT) Anatomical Region Laterality Modality Breast Bilateral Mammography 01/06/2025 3:09 PM EDT Impressions 01/06/2025 3:13 PM EDT Benign. BI-RADS CATEGORY: 1 - NEGATIVE RECOMMENDATION: Screening bilateral mammogram is recommended in 1 year. Mammo Location: [facility], [address] [place] [address], [id number], . -------- FINAL REPORT -------- Dictated By: Kori Gloria Dictated Date: 01/06/2025 15:09 ET Assigned Physician: Kori Gloria Reviewed and Electronically Signed By: Kori Gloria Signed Date: 01/06/2025 15:13 ET Workstation ID: [id number] Transcribed By: Self Edit Transcribed Date: 01/06/2025 15:09 ET Narrative 01/06/2025 3:13 PM EDT CLINICAL: 59 years old, Female, routine annual exam. COMPARISON: Mammograms dating back to 02/25/2020 with most recent of 12/15/2023. TECHNIQUE: Bilateral MLO and CC views were obtained digitally with 3-D mammogram (digital breast tomosynthesis). Computer-aided detection was utilized in evaluation of this exam (CAD). FINDINGS: There is no evidence of suspicious mass or architectural distortion. No worrisome calcifications are evident. There has been no significant change from prior exam(s). BREAST DENSITY: C - The breasts are heterogeneously dense which may obscure small masses. Procedure Note Kori Gloria MD - 01/06/2025 CLINICAL: 59 years old, Female, routine annual exam. COMPARISON: Mammograms dating back to 02/25/2020 with most recent of12/15/2023. TECHNIQUE: Bilateral MLO and CC views were obtained digitally with 3-Dmammogram (digital breast tomosynthesis). Computer-aided detection wasutilized in evaluation of this exam (CAD). FINDINGS: There is no evidence of suspicious mass or architectural distortion. Noworrisome calcifications are evident. There has been no significantchange from prior exam(s). BREAST DENSITY: C - The breasts are heterogeneously dense which mayobscure small masses. IMPRESSION: Benign. BI-RADS CATEGORY: 1 - NEGATIVE RECOMMENDATION: Screening bilateral mammogram is recommended in 1 year. Mammo Location: [facility], [address] [place] [address], [id number], . -------- FINAL REPORT -------- Dictated By: Kori Gloria Dictated Date: 01/06/2025 15:09 ET Assigned Physician: Kori Gloria Reviewed and Electronically Signed By: Kori Gloria Signed Date: 01/06/2025 15:13 ET Workstation ID: [id number] Transcribed By: Self Edit Transcribed Date: 01/06/2025 15:09 ET Di Collier CNM IMG BI PROCEDURES Final Resul t * Depression Screening (02/01/2024) Pathologist [facility] Depression Screening abstracted Historical Provider HEALTH MAINTENANCE Final Result * (ABNORMAL) Lipid panel (12/26/2022) LDL/HDL Ratio 3 0 - 4 Triglycerides 46 0 - 150 mg/dL Cholesterol 216(A) 0 - 200 mg/dL HDL 85 >=40 mg/dL LDL Cholesterol 122(A) 0 - 100 mg/dL Blood Venous blood specimen / Unknown [facility] Provider LAB BLOOD ORDERABLES Hanna l Result * Cervical Cancer Screening: HPV (07/13/2021) Cervical Cancer Screening: HPV abstracted, negative [facility] Provider HEALTH MAINTENANCE Final Result * HIV Screening (03/07/2019) Pathologist [facility] HIV Screening abstracted [facility] Provider HEALTH MAINTENANCE Final Result * Hepatitis C Screening (03/07/2019) Pathologist [facility] Hepatitis C Screening abstracted [facility] Provider HEALTH MAINTENANCE Final Result from Last 3 Months or Most Recently Relevant to Health Maintenance Insurance [facility] Care Teams Driver Examiner Relationship Specialty Start Date End Date Vaishali Veloz PA [address] [place] [address] PCP - General Family Medicine 04/01/24
== END 2025-02-24 12:38 | disposition home or self-care (01) ==
LOC: HO.HBS 12:31
PROVIDERS: PCP Internal Medicine; Visit Provider Physician Assistant Surgical
DX: E66.3 Overweight (principal); Z68.29 Body mass index [BMI] 29.0-29.9, adult; Z90.3 Acquired absence of stomach [part of]; Z98.84 Bariatric surgery status
CPT/HCPCS: 98013